=== PATIENT | female | born 1990 | race African-American/Black ===

== ENCOUNTER → 2016-09-04 | Outpatient (CLI) | payer BC, OTHER, SELFPAY ==
--- NOTE | 2016-09-07 15:05 | US ---
EXAM DATE: 09/04/16 PATIENT'S AGE: 26 Patient: ONEIL HAZEL Facility: [place], [place] Site . Site : 1990 Study: US OB Pelvis [id number]/10/2017 3:22:19 PM Ordering Physician: Miguel Ángel Claudio Final Report: INDICATION: survey. TECHNIQUE: Conventional transabdominal two-dimensional grayscale ultrasound examination. COMPARISON: 06/07/2016. FINDINGS: There is a living fetus with gestational age of 21 weeks by LMP and 20 weeks 2 days by today`s measurements. EDC based on LMP is 01/15/2017. BPD: 4.8 cm, 20 weeks 4 days Head circumference: 18.3 cm, 20 weeks 5 days Abdominal circumference: 15.3 cm, 20 weeks 4 days Femur length: 3.1 cm, 19 weeks 4 days The weight is estimated at 334 grams, the 10th percentile. The heart rate is measured at 150 beats per minute and the rhythm appears regular. The head and spine are grossly intact. No gross facial abnormality is evident. The upper lip is intact. Four cardiac chambers are demonstrated. The heart and stomach appear to be on the same side. The diaphragm is intact. Two kidneys and a bladder are demonstrated. The cord insertion is normal and 3 cord vessels are noted. Four extremities are demonstrated. The amniotic fluid volume is within normal limits with SAE of 13 cm. The placenta is posterior and appears to be low-lying. IMPRESSION: 1. Living fetus with gestational age of 21 weeks by LMP and 20 weeks 2 days by today`s measurements. EDC based on LMP is 01/15/2017. 2. No anomaly evident. 3. Low lying posterior placenta. Follow up examination, perhaps with translabial or transvaginal scanning suggested to exclude previa. Dictated by Jarred Head MD @ Sep 07 2016 9:35AM (Electronic Signature) Report Signed by Proxy and Original Signed Document filed in the Medical Record. MTDD
== END ==
LOC: MW.US 14:12
PROVIDERS: ATTEND Advanced Practice Midwife
DX: Z34.90 Encounter for supervision of normal pregnancy, unspecified, unspecified trimester (principal); Z3A.20 20 weeks gestation of pregnancy
CPT/HCPCS: 36415; 76805; 76805-26; 80305; 81003; 85025; 86592; 86762; 86803; 86850; 86900; 86901; 87086; 87340; 87389

== ENCOUNTER → 2016-10-28 | Outpatient (CLI) | payer BC, OTHER, SELFPAY | LOC: MW.CHOBGYN 09:58 | PROVIDERS: ATTEND Advanced Practice Midwife | DX: Z34.90 Encounter for supervision of normal pregnancy, unspecified, unspecified trimester (principal) | CPT/HCPCS: 36415; 82950; 85027; 86850 ==

== ENCOUNTER 2016-12-29 19:11 | Emergency (ER) | payer BC, OTHER ==
--- NOTE | 2016-12-29 19:31 | EDM.PDOC ---
ED HPI GENERAL MEDICAL PROBLEM - General Stated Complaint: 27 WKS/CHEST PAIN Time Seen by Provider: 12/29/16 19:28 - History of Present Illness INITIAL COMMENTS - FREE TEXT/NARRATIVE: HISTORY AND PHYSICAL: History of present illness: She's a 26-year-old black female was approximately 37 weeks who presents with concern of lower back lower abdominal pain and cramping delivered at 37 weeks with a prior loss was complaint of shortness of breath and chest pain pulse oximetry is 99% on room air patient's afebrile heart rate 94 blood pressure 157/105 EKG is sinus rhythm with a rate of 91 and no acute changes patient denies vaginal discharge bleeding denies any evidence of water breaking. She has no headache no blurry vision or other complaints Review of systems: As per history of present illness and below otherwise all systems reviewed and negative. Past medical history: As per history of present illness and as reviewed below otherwise noncontributory. Surgical history: As per history of present illness and as reviewed below otherwise noncontributory. Social history: No reported history of drug or alcohol abuse. Family history: As per history of present illness and as reviewed below otherwise noncontributory. Physical exam: HEENT: Atraumatic, normocephalic, pupils reactive, negative for conjunctival pallor or scleral icterus, mucous membranes moist, throat clear, neck supple, nontender, trachea midline. Lungs: Clear to auscultation, breath sounds equal bilaterally, chest nontender. Heart: S1S2, regular, negative for clicks, rubs, or JVD. Abdomen: Soft, gravid uterus noted consistent with dates Negative for masses or hepatosplenomegaly. Negative for costovertebral tenderness. Pelvis: Stable nontender. Genitourinary: Deferred. Rectal: Deferred. Extremities: Atraumatic, negative for cords or calf pain. Neurovascular unremarkable. Neuro: Awake, alert, oriented. Cranial nerves II through XII unremarkable. Cerebellum unremarkable. Motor and sensory unremarkable throughout. Exam nonfocal. 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 Crocker will present to the emergency department for evaluation as labor and delivery makes arrangements for transfer Therapeutics: IV O2 monitor Impression: #17 week intrauterine #2 low back/abdominal pain #3 atypical chest pain Definitive disposition and diagnosis as appropriate pending reevaluation and review of above. - Related Data Allergies Allergy/AdvReac Type Severity Reaction Status Date / Time No Known Allergies Allergy Verified 12/29/16 19:33 Home Meds: Home Meds PNV95/Ferrous Fumarate/FA [ Multivitamins] 1 tab PO DAILY 01/14/14 [ History] Past Medical History - Past Health History Medical/Surgical History: Denies Medical/Surgical History Social & Family History - Family History Family Medical History: Noncontributory - Tobacco Use Smoking Status *Q: Never Smoker Second Hand Smoke Exposure: No - Alcohol Use Days Per Week of Alcohol Use: 0 - Recreational Drug Use Recreational Drug Use: No ED ROS GENERAL - Review of Systems Review Of Systems: ROS reveals no pertinent complaints other than HPI. ED EXAM, GENERAL - Physical Exam Exam: See Below (See dictation) Course - Vital Signs Last Recorded V/S: Last Vital Signs Temp 36.9 C 12/29/16 19:11 Pulse 94 12/29/16 19:11 Resp 18 12/29/16 19:11 BP 157/105 H 12/29/16 19:11 Pulse Ox 99 12/29/16 19:11 Departure - Departure Time of Disposition: 19:42 Disposition: DC/Tfer to Other 70 Condition: Good Clinical Impression: Third trimester , Abdominal pain, Atypical chest pain - Discharge Information
== END 2016-12-29 21:01 | disposition other institution (70) ==
LOC: MW.ED 19:11
CPT/HCPCS: 93005; 99285-25

== ENCOUNTER 2017-01-01 10:01 | Inpatient (IN) | payer BC, OTHER, SELFPAY ==
[2017-01-01] MEDS ORDERED: Terbutaline 1 MG/ML SDV SUBCUT PRN (10:11)
[2017-01-01] MEDS ORDERED: Magnesium Sulfate/Water 4 GM in Premix Bag 1 BAG IV ONE (10:11)
[2017-01-01] MEDS ORDERED: Water For Irrigation,Sterile 1,000 ML Container IRR PRN (10:11)
[2017-01-01] MEDS ORDERED: Nalbuphine 10 MG/1 ML Vial IVPUSH PRN (10:11)
[2017-01-01] MEDS ORDERED: Calcium Gluconate 10% 1 GM/10 ML SDV IV PRN (10:11)
[2017-01-01] MEDS ORDERED: Misoprostol 200 MCG Tab PO PRN (10:11)
[2017-01-01] MEDS ORDERED: Methylergonovine 0.2 MG/1 ML Amp IM PRN (10:11)
[2017-01-01] MEDS ORDERED: Sodium Chloride 0.9% 10 ML Syringe FLUSH PRN (10:11)
[2017-01-01] MEDS ORDERED: Carboprost Tromethamine 250 MCG/1 ML Amp IM PRN (10:11)
[2017-01-01] MEDS ORDERED: Lidocaine 1% 50 ML MDV INJECT PRN (10:11)
[2017-01-01] MEDS ORDERED: Butorphanol 1 MG/ML SDV IVPUSH PRN (10:11)
[2017-01-01] MEDS ORDERED: Sodium Chloride 0.9% 2.5 ML Syringe FLUSH PRN (10:11)
[2017-01-01] MEDS ORDERED: Magnesium Sulfate/Water 40 GM/1,000 ML BAG IV SCH (10:15)
[2017-01-01] MEDS ORDERED: Oxytocin/Lactated Ringers 30 UNIT/500 ML BAG IV SCH ×2 (10:15)
[2017-01-01] MEDS ORDERED: Dextrose 5%-0.9% NaCl 1,000 ML IV SCH (11:00)
[2017-01-01] MEDS ORDERED: Ampicillin 2 GM in Sodium Chloride 0.9% 100 ML IV ONE ×4 (11:00)
[2017-01-01] MEDS ORDERED: Dextrose 5%-Lactated Ringers 1,000 ML IV SCH (12:45)
[2017-01-01] MEDS: Ampicillin 1 GM in Sodium Chloride 0.9% 50 ML IV SCH ×3 (16:07→23:59)
[2017-01-01] MEDS ORDERED: Lactated Ringers 1,000 ML IV ONE (18:28)
[2017-01-01] MEDS: Lactated Ringers 1,000 ML IV SCH ×2 (18:30→19:30)
--- NOTE | 2017-01-01 18:30 | PCM.PREANE ---
Preanesthetic Assessment - Procedure Proposed Procedure: labor epidural - Anesthesia/Transfusion/Family Hx Anesthesia History: Prior Anesthesia Without Reaction Family History of Anesthesia Reaction: No Transfusion History: No Prior Transfusion(s) - Review of Systems General: No Symptoms Pulmonary: No Symptoms Cardiovascular: No Symptoms (Pre eclampsia) Gastrointestinal: No symptoms Neurological: No Symptoms Other: Reports: None - Physical Assessment NPO Status Date: 01/01/17 NPO Status Time: 19:32 (ice chips only) Height: 1.68 m Weight: 82.554 kg ASA Class: 3 Mental Status: Alert & Oriented x3 Airway Class: Mallampati = 3 Dentition: Reports: Normal Dentition Thyro-Mental Finger Breadths: 3 Mouth Opening Finger Breadths: 3 ROM/Head Extension: Full Lungs: Clear to auscultation, Normal respiratory effort Cardiovascular: Regular Rate, Regular Rhythm - Lab Values: Laboratory Last Values WBC 9.25 K/uL (4.0-11.0) 01/01/17 10:46 RBC 5.00 M/uL (4.30-5.90) 01/01/17 10:46 Hgb 9.7 g/dL (12.0-16.0) L 01/01/17 10:46 Hct 29.6 % (36.0-46.0) L 01/01/17 10:46 MCV 59.2 fL (80.0-98.0) L 01/01/17 10:46 MCH 19.4 pg (27.0-32.0) L 01/01/17 10:46 MCHC 32.8 g/dL (31.0-37.0) 01/01/17 10:46 RDW Std Deviation 43.2 fl (28.0-62.0) 01/01/17 10:46 RDW Coeff of Marvel 20 % (11.0-15.0) H 01/01/17 10:46 Plt Count 340 K/uL (150-400) 01/01/17 10:46 MPV 8.90 fL (7.40-12.00) 01/01/17 10:46 Nucleated RBC % 0.3 /100WBC 01/01/17 10:46 Nucleated RBCs # 0 K/uL 01/01/17 10:46 Magnesium 3.3 mEq/L (1.5-2.3) H 01/01/17 15:49 Blood Type B POSITIVE 01/01/17 10:46 Antibody Screen NEGATIVE 01/01/17 10:46 - Allergies Allergies/Adverse Reactions: Allergies Allergy/AdvReac Type Severity Reaction Status Date / Time No Known Allergies Allergy Verified 12/29/16 19:33 - Blood Blood Available: Yes Product(s) Available: PRBC - Acknowledgements Anesthesia Type Planned: Epidural Pt an Appropriate Candidate for the Planned Anesthesia: Yes Alternatives and Risks of Anesthesia Discussed w Pt/Guardian: Yes Pt/Guardian Understands and Agrees with Anesthesia Plan: Yes PreAnesthesia Questionnaire - Past Health History Medical/Surgical History: Denies Medical/Surgical History HEENT History: Reports: None Cardiovascular History: Reports: None, Hypertension (Pre eclampsia, induction, on magnesium drip) Respiratory History: Reports: None Gastrointestinal History: Reports: None Genitourinary History: Reports: None 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: Reports: Musculoskeletal History: Reports: None Neurological History: Reports: None Psychiatric History: Reports: None Endocrine/Metabolic History: Reports: None Hematologic History: Reports: None Oncologic (Cancer) History: Reports: None Dermatologic History: Reports: None - Infectious Disease History Infectious Disease History: Reports: Chicken Pox - SUBSTANCE USE Smoking Status *Q: Never Smoker Second Hand Smoke Exposure: No Days Per Week of Alcohol Use: 0 Recreational Drug Use History: No - HOME MEDS Home Medications: Home Meds PNV95/Ferrous Fumarate/FA [ Multivitamins] 1 tab PO DAILY 01/14/14 [ History] - CURRENT (IN HOUSE) MEDS Current Meds: Current Medications Butorphanol Tartrate (Stadol) 1 mg IVPUSH Q1H PRN PRN Reason: Pain Last Admin: 01/01/17 14:57 Dose: 1 mg Calcium Gluconate (Calcium Gluconate) 1 gm IV ASDIRECTED PRN PRN Reason: respiratory distress Carboprost Tromethamine (Hemabate Ds) 250 mcg IM ASDIRECTED PRN PRN Reason: Post Hemorrhage Ampicillin Sodium 1 gm/ Sodium (Chloride) 50 mls @ 100 mls/hr IV Q4H YEVGENIY Last Admin: 01/01/17 16:07 Dose: 100 mls/hr Magnesium Sulfate (Magnesium Sulfate 40 Gm In Water 1000 Ml) 40 gm in 1,000 mls @ 50 mls/hr IV ASDIRECTED YEVGENIY PRN Reason: 2 GM/HR Last Admin: 01/01/17 11:49 Dose: 2 gm/hr, 50 mls/hr Oxytocin/Lactated Ringer's (Pitocin In Lr 30 Units/500 Ml) 30 unit in 500 mls @ 2 mls/hr IV TITRATE YEVGENIY; 2 MUNITS/MIN PRN Reason: Protocol Last Titration: 01/01/17 17:35 Dose: 12 munits/min, 12 mls/hr Dextrose/Sodium Chloride (Dextrose 5%-Normal Saline) 1,000 mls @ 60 mls/hr IV ASDIRECTED YEVGENIY Last Infusion: 01/01/17 12:00 Dose: 10 mls/hr Dextrose/Lactated Ringer's (Dextrose 5%-Lactated Ringers) 1,000 mls @ 150 mls/ hr IV ASDIRECTED YEVGENIY Last Admin: 01/01/17 11:50 Dose: 10 mls/hr Lidocaine HCl (Xylocaine 1%) 50 ml INJECT .ONCE PRN PRN Reason: Laceration repair Methylergonovine Maleate (Methergine) 0.2 mg IM ASDIRECTED PRN PRN Reason: Post Hemorrhage Misoprostol (Cytotec) 200 mcg PO .ONCE PRN PRN Reason: Post Hemorrhage Sodium Chloride (Saline Flush) 10 ml FLUSH ASDIRECTED PRN PRN Reason: Keep Vein Open Sodium Chloride (Saline Flush) 2.5 ml FLUSH ASDIRECTED PRN PRN Reason: Keep Vein Open Sterile Water (Sterile Water For Irrigation) 1,000 ml IRR ASDIRECTED PRN PRN Reason: delivery Terbutaline Sulfate (Brethine) 0.25 mg SUBCUT ASDIRECTED PRN PRN Reason: Tacysystole Discontinued Medications Ampicillin Sodium 2 gm/ Sodium (Chloride) 100 mls @ 200 mls/hr IV ONETIME ONE Stop: 01/01/17 11:29 Magnesium Sulfate 4 gm/ Premix 100 mls @ 300 mls/hr IV .BOLUS ONE Stop: 01/01/17 10:30 Last Admin: 01/01/17 11:34 Dose: 300 mls/hr Oxytocin/Lactated Ringer's (Pitocin In Lr 30 Units/500 Ml) 30 unit in 500 mls @ 999 mls/hr IV TITRATE YEVGENIY Stop: 01/01/17 10:46 Ampicillin Sodium 2 gm/ Sodium (Chloride) 100 mls @ 200 mls/hr IV ONETIME ONE Stop: 01/01/17 11:29 Last Admin: 01/01/17 12:00 Dose: 200 mls/hr Nalbuphine HCl (Nubain) 10 mg IVPUSH Q1H PRN PRN Reason: Pain (severe 7-10) Stop: 01/01/17 11:12 - Free Text/Narrative Note: Labor Analgesia/Epidural Procedure start date: 01/01/17 time: 1846 Attending provider aware Chart reviewed Permit signed Labs reviewed VS/ FHR reviewed Pt identified/ID band Pt assessed Risks/Benefits discussed and accepted Monitors in place (BP, HR, SPO2) Patient, Site, Procedure Verification, Pause. pain "7/10" Fluid bolus infused (fluid type and amount): LR 1000 ml infused, strict fluid restriction r/t preeclampsia Position: Sitting @ 1854 Prep: Betadine X 3 Sterile Drape Intradermal Wheal: 3 ml 1% Lidocaine Regional placement level: L3-4 Needle: 17 g Tuohy Approach: Midline Technique: DAIANA glass syringe w 3 ml Sterile water DAIANA needle depth: 6 cm Paresthesia: None Fluid Obtained: None Catheter insertion time: 1902 Catheter depth at skin: 20 cm Test Dose Time: 1904 RX: 3 ml 1.5% lidocaine with 1:200,000 epi Response: Negative Loading dose Time: 1276-9331 RX: 100 mcg fentanyl followed by 5 ml 0.2% ropivacaine in 1-2 ml increments over 12 minutes Pt position: semi fowlers with GABBI Continuous infusion Start Time: 1921 RX: 100 ml 0.2% ropivacaine with 2 mcg/ml fentanyl Continuous infusion rate: 8 ml/hr HAND WASHER bolus option: 5 ml q 15 min Pt response Post procedure pain level: Level achieved: VS and FHR monitored in unit post placement (See OB traceview for documentation. ) Procedure end date: 01/01/17 time: 2016
[2017-01-01] MEDS ORDERED: fentaNYL 100 MCG/2 ML SDV ONE (18:44)
[2017-01-01] MEDS ORDERED: Ropivacaine 0.2% 2 MG/ML 20 ML SDV ONE (18:44)
[2017-01-01] MEDS ORDERED: ePHEDrine 50 MG/ML SDV ONE (20:06)
--- NOTE | 2017-01-02 00:28 | HP ---
DATE OF : 1990 PRIMARY CARE PHYSICIAN: Unknown PCP ADMITTING DIAGNOSIS: Preeclampsia. HISTORY: This is a 26-year-old female, she is G2, P1-0-0-1. She is currently at 37 and 4/7th weeks' gestation. She was seen in the clinic by her primary OB provider Shanon Del Rosario for whom I am covering and she had a 24 hour urine collection that came back with 1401 mg of protein in the 24 hour collection. She has had slightly elevated blood pressures in the clinic. She denies significant swelling. She does report a mild headache. No epigastric pain or tenderness. Her care to this point has been uncomplicated. She is B positive, rubella immune. She is positive for group B strep. On ultrasound in the second trimester, there was noted to be a low-lying placenta, however this had resolved with followup ultrasound on December 14. PAST MEDICAL HISTORY: Negative for chronic illness. PAST SURGICAL HISTORY: None. ALLERGIES: None known. MEDICATION: vitamins. SOCIAL HISTORY: She is , sexually active. Denies use of tobacco, alcohol, or street drugs. She works at [employer]. She is comfortable speaking O[place]i. She is originally from [place]. REVIEW OF SYSTEMS: Positive for mild headache. Negative for visual changes. Negative for shortness of breath or chest pain. Negative for gastroentero changes. PHYSICAL EXAMINATION: VITAL SIGNS: Blood pressure on admission was 138/87, repeat 134/83, temperature 98.0, pulse is 86, respiratory rate of 18. heart tones are 125, moderate variability, accelerations of 10 beats per minute are present. GENERAL: She is alert and oriented. She is in no acute distress. NECK: Supple without lymphadenopathy or thyromegaly. LUNGS: Clear bilaterally. CV: Regular rate without murmur. ABDOMEN: Soft, gravid, nontender. Estimated weight 2800 g. EXTREMITIES: Show trace edema. : Vaginal exam is 3 cm, 50%, very high station. DIAGNOSTIC DATA: Ultrasound is performed at bedside to confirm cephalic presentation. LABORATORY STUDIES: Include a platelet count of 340,000, hemoglobin of 9.7, white blood cell count of 9.25 and 24 hour urine protein of 1401 mg. ASSESSMENT AND PLAN: 1. 37 and 4/7th week intrauterine . 2. Category one status. 3. Group B strep positive. 4. Mild preeclampsia. 5. Anemia. TREATMENT AND PLAN: We will admit for induction of labor, will receive ampicillin every 4 hours. She may have an epidural for pain control, will continue with magnesium sulfate for seizure prophylaxis with magnesium protocol and monitoring urine output as well as blood pressures intervention as needed for preeclampsia. The patient understands the plan and is in agreement. PAOLA DIAZ /[id number]
--- NOTE | 2017-01-02 03:51 | PCM.SN ---
- Free Text/Narrative Note: Initially called for breakthrough pain. Reported by nursing staff that patient dilated to 8 cm and feeling a lot of pressure in back. Nurse requesting that patient be given "something a little bit more or stronger". Nurse states she thinks baby might be "OP". States pt has used LABORATORY PHLEBOTOMIST button "about 3 times". Upon arrival, pt near complete dilation. Chart reviewed and pt found to have pushed bolus button intermittently over the past 2 hours. Pt states she is "so numb I can't hardly move". Dr. Clarke en route for delivery. Nursing staff educated on LABORATORY PHLEBOTOMIST use and instructed that patient should use LABORATORY PHLEBOTOMIST button consistently over the course of an hour to determine effectiveness. Epidural infusion bag near empty. Bag replaced and rate left at current settings. Dr Clarke here and updated on pt pain status. Will remain available for additional dosing at business development coordinator request.
[2017-01-02] MEDS: Ampicillin 1 GM in Sodium Chloride 0.9% 50 ML IV SCH (03:54)
[2017-01-02] MEDS ORDERED: Docusate Sodium 100 MG Cap PO PRN (06:25)
[2017-01-02] MEDS ORDERED: Bisacodyl 10 MG Supp RECTAL PRN (06:25)
[2017-01-02] MEDS ORDERED: Carboprost Tromethamine 250 MCG/1 ML Amp IM PRN (06:25)
[2017-01-02] MEDS ORDERED: Acetaminophen 500 MG Tab PO PRN (06:25)
[2017-01-02] MEDS ORDERED: Witch Hazel Medicated Pads 40/Jar TOP PRN (06:25)
[2017-01-02] MEDS ORDERED: Lanolin 100% Cream 7 GM Tube TOP PRN (06:25)
[2017-01-02] MEDS ORDERED: Benzocaine/Menthol 20%-0.5% Spray 78 GM Cannister TOP PRN (06:25)
[2017-01-02] MEDS ORDERED: Calcium Gluconate 10% 1 GM/10 ML SDV IVPUSH PRN (06:29)
[2017-01-02] MEDS: Magnesium Sulfate/Water 40 GM/1,000 ML BAG IV SCH (07:01)
[2017-01-02] MEDS: Ibuprofen 800 MG Tab PO PRN ×2 (09:08→21:16)
--- NOTE | 2017-01-02 09:13 | OR ---
SURGEON: Felipa Clarke M.D. DATE OF PROCEDURE: PREOPERATIVE DIAGNOSES: 1. A 37 and 5/7th week intrauterine . 2. Mild preeclampsia. POSTOPERATIVE DIAGNOSES: 1. A 37 and 5/7th week intrauterine . 2. Mild preeclampsia. PROCEDURE: Pitocin induction of labor, term spontaneous vaginal delivery. ANESTHESIA: Epidural. ESTIMATED BLOOD LOSS: Less than 200 mL. FINDINGS: Live-born male, score 7 and 8, weighing 2670 g, placenta spontaneous, Schultze intact with 3 vessels, perineum intact. BRIEF HISTORY: This is a 26-year-old female. She is G2, P1-0-0-1. She presented to the clinic at 37 and 4/7th weeks' gestation having completed a 24-hour urine, which had 1400 mg of protein. She reported a mild headache, which was intermittent. Her blood pressures were mildly elevated and recommendation was to proceed with induction of labor. Her Coleman score was favorable, therefore, she was started on Pitocin. She had category 1 heart tones after magnesium variability was decreased, however, still with accelerations present. She progressed to 4 cm and she received an epidural for pain control. Artificial rupture of membranes was performed. She tolerated the magnesium well and magnesium levels were obtained to follow the magnesium treatment. She had excellent urine output throughout labor. She progressed to complete. Initially, she had minimal urge to push. The head was at a high station and was occiput posterior. Therefore, passive descent was allowed for 1-hour. At this time, she was a +3 station and was feeling pressure. DESCRIPTION OF PROCEDURE: With the patient in dorsal lithotomy position, the patient pushed over a 10- minute time period to a 5+ station, at which time the head was delivered spontaneously and atraumatically over the perineum with support with subsequent delivery of the infant's shoulders and body without any difficulty. The infant was bulb suctioned by nose and mouth. Cord was clamped x2 and cut and the infant was handed to the mother in the presence of the nurse attending delivery. The is a liveborn male, score 7 and 8, weighing 2670 g. Cord blood was collected for cord ABGs as well as routine cord blood sampling. Pitocin was initiated after delivery of the to assist with delivery of the placenta, which was delivered spontaneously, Schultze intact with 3 vessels. Upon inspection of the pelvis and perineum, there were no periurethral, vaginal sidewall, cervical, rectal, or perineal lacerations. EBL was less than 200 mL. There were no known complications. Mother and remained in LDRP in good condition. Mother will be continued on magnesium seizure prophylaxis for 24 hours . Final sponge, needle, instrument count were correct. PAOLA DIAZ /[id number]
--- NOTE | 2017-01-02 15:15 | PCM48HPAN ---
Post Anesthesia Note - EVALUATION WITHIN 48HRS OF ANESTHETIC Vital Signs in Normal Range: Yes Patient Participated in Evaluation: Yes Respiratory Function Stable: Yes Airway Patent: Yes Cardiovascular Function Stable: Yes Hydration Status Stable: Yes Pain Control Satisfactory: Yes Nausea and Vomiting Control Satisfactory: Yes Mental Status Recovered: Yes
--- NOTE | 2017-01-02 19:40 | PCM.PNPP ---
- General Info Date of Service: 01/02/17 Functional Status: Reports: pain controlled, urinating. Denies: tolerating diet (limited clears due to magnesium, denies nausea), ambulating - Review of Systems General: Reports: No Symptoms HEENT: Reports: no symptoms Pulmonary: Reports: no symptoms Cardiovascular: Reports: No Symptoms Gastrointestinal: Reports: No symptoms Genitourinary: Reports: no symptoms Musculoskeletal: Reports: no symptoms Skin: Reports: no symptoms Neurological: Reports: No Symptoms Psychiatric: Reports: no symptoms - Patient Data Vital Signs - most recent: Last Vital Signs Temp 37.1 C 01/02/17 16:00 Pulse 86 01/02/17 16:00 Resp 18 01/02/17 16:00 BP 128/71 01/02/17 16:00 Pulse Ox 97 01/02/17 16:00 Weight - most recent: 80.1 kg I&O - last 24 hours: Intake & Output 01/02/17 01/02/17 01/02/17 06:59 14:59 22:59 Intake Total 3225 Output Total 1075 Balance 2150 Lab Results - last 24 hrs: Laboratory Results - last 24 hr 01/01/17 01/01/17 01/02/17 Range/Units 14:30 21:10 03:10 Magnesium 3.9 H 4.1 H (1.5-2.3) mEq/L Urine Color YELLOW Urine Appearance CLEAR Urine pH 6.0 (5.0-8.0) Ur Specific [place] 1.025 (1.001-1.035) Urine Protein TRACE (NEGATIVE) mg/dL Urine Glucose (UA) NEGATIVE (NEGATIVE) mg/dL Urine Ketones NEGATIVE (NEGATIVE) mg/dL Urine Occult Blood NEGATIVE (NEGATIVE) Urine Nitrite NEGATIVE (NEGATIVE) Urine Bilirubin NEGATIVE (NEGATIVE) Urine Urobilinogen 0.2 (<2.0) EU/dL Ur Leukocyte Esterase NEGATIVE (NEGATIVE) 01/02/17 01/02/17 Range/Units 07:12 12:51 Magnesium 4.6 H 4.5 H (1.5-2.3) mEq/L Urine Color Urine Appearance Urine pH (5.0-8.0) Ur Specific [place] (1.001-1.035) Urine Protein (NEGATIVE) mg/dL Urine Glucose (UA) (NEGATIVE) mg/dL Urine Ketones (NEGATIVE) mg/dL Urine Occult Blood (NEGATIVE) Urine Nitrite (NEGATIVE) Urine Bilirubin (NEGATIVE) Urine Urobilinogen (<2.0) EU/dL Ur Leukocyte Esterase (NEGATIVE) Med Orders - Current: Current Medications Acetaminophen (Tylenol Extra Strength) 1,000 mg PO Q4H PRN PRN Reason: Pain Last Admin: 01/02/17 14:29 Dose: 1,000 mg Benzocaine/Menthol (Dermoplast Pain Relief 20%-0.5% [place]) 78 gm TOP ASDIRECTED PRN PRN Reason: Perineal Comfort Measure Last Admin: 01/02/17 09:09 Dose: 1 canister Bisacodyl (Dulcolax) 10 mg RECTAL .ONCE PRN PRN Reason: Constipation Calcium Gluconate (Calcium Gluconate) 1 gm IVPUSH ASDIRECTED PRN PRN Reason: respiratory distress Carboprost Tromethamine (Hemabate Ds) 250 mcg IM ASDIRECTED PRN PRN Reason: Excessive vaginal bleeding Stop: 01/09/17 06:26 Docusate Sodium (Colace) 100 mg PO BID PRN PRN Reason: Constipation Emollient Ointment (Lansinoh Hpa) 0 gm TOP ASDIRECTED PRN PRN Reason: Sore Nipples Last Admin: 01/02/17 09:09 Dose: 1 tube Magnesium Sulfate (Magnesium Sulfate 40 Gm In Water 1000 Ml) 40 gm in 1,000 mls @ 50 mls/hr IV ASDIRECTED YEVGENIY; 2 GM/HR PRN Reason: Protocol Last Admin: 01/02/17 07:01 Dose: 2 gm/hr, 50 mls/hr Ibuprofen (Motrin) 800 mg PO Q6H PRN PRN Reason: Pain Last Admin: 01/02/17 09:08 Dose: 800 mg Witch Paula (Tucks) 1 pad TOP ASDIRECTED PRN PRN Reason: comfort care Last Admin: 01/02/17 09:09 Dose: 1 tub Discontinued Medications Butorphanol Tartrate (Stadol) 1 mg IVPUSH Q1H PRN PRN Reason: Pain Last Admin: 01/01/17 14:57 Dose: 1 mg Calcium Gluconate (Calcium Gluconate) 1 gm IV ASDIRECTED PRN PRN Reason: respiratory distress Carboprost Tromethamine (Hemabate Ds) 250 mcg IM ASDIRECTED PRN PRN Reason: Post Hemorrhage Ephedrine Sulfate (Ephedrine Sulfate) Confirm Administered Dose 50 mg .ROUTE .STK-MED ONE Stop: 01/01/17 20:07 Last Admin: 01/01/17 21:48 Dose: Not Given Fentanyl (Sublimaze) Confirm Administered Dose 100 mcg .ROUTE .STK-MED ONE Stop: 01/01/17 18:45 Last Admin: 01/01/17 21:48 Dose: Not Given Ampicillin Sodium 1 gm/ Sodium (Chloride) 50 mls @ 100 mls/hr IV Q4H YEVGENIY Last Admin: 01/02/17 03:54 Dose: 100 mls/hr Ampicillin Sodium 2 gm/ Sodium (Chloride) 100 mls @ 200 mls/hr IV ONETIME ONE Stop: 01/01/17 11:29 Last Admin: 01/02/17 07:04 Dose: Not Given Magnesium Sulfate 4 gm/ Premix 100 mls @ 300 mls/hr IV .BOLUS ONE Stop: 01/01/17 10:30 Last Admin: 01/01/17 11:34 Dose: 300 mls/hr Magnesium Sulfate (Magnesium Sulfate 40 Gm In Water 1000 Ml) 40 gm in 1,000 mls @ 50 mls/hr IV ASDIRECTED YEVGENIY PRN Reason: 2 GM/HR Last Admin: 01/01/17 11:49 Dose: 2 gm/hr, 50 mls/hr Oxytocin/Lactated Ringer's (Pitocin In Lr 30 Units/500 Ml) 30 unit in 500 mls @ 999 mls/hr IV TITRATE YEVGENIY Stop: 01/01/17 10:46 Last Admin: 01/01/17 21:49 Dose: Not Given Oxytocin/Lactated Ringer's (Pitocin In Lr 30 Units/500 Ml) 30 unit in 500 mls @ 2 mls/hr IV TITRATE YEVGENIY; 2 MUNITS/MIN PRN Reason: Protocol Last Titration: 01/02/17 06:00 Dose: 999 mls/hr Ampicillin Sodium 2 gm/ Sodium (Chloride) 100 mls @ 200 mls/hr IV ONETIME ONE Stop: 01/01/17 11:29 Last Admin: 01/01/17 12:00 Dose: 200 mls/hr Dextrose/Sodium Chloride (Dextrose 5%-Normal Saline) 1,000 mls @ 60 mls/hr IV ASDIRECTED YEVGENIY Last Infusion: 01/01/17 12:00 Dose: 10 mls/hr Dextrose/Lactated Ringer's (Dextrose 5%-Lactated Ringers) 1,000 mls @ 150 mls/ hr IV ASDIRECTED [facility] Stop: 01/01/17 18:15 Last Infusion: 01/01/17 18:30 Dose: 0 mls/hr Lactated Ringer's (Ringers, Lactated) 1,000 mls @ 999 mls/hr IV ASDIRECTED ONE Stop: 01/01/17 19:28 Last Admin: 01/01/17 21:49 Dose: Not Given Lactated Ringer's (Ringers, Lactated) 1,000 mls @ 20 mls/hr IV ASDIRECTED [facility] Last Admin: 01/01/17 19:30 Dose: 10 mls/hr Ropivacaine/Fentanyl/NS (Fentanyl 2 Mcg-Ropiv 0.2%-Ns) Confirm Administered Dose 100 mls @ as directed .ROUTE .[employer]-MED ONE Stop: 01/01/17 18:45 Last Admin: 01/01/17 21:48 Dose: Not Given Ropivacaine/Fentanyl/NS (Fentanyl 2 Mcg-Ropiv 0.2%-Ns) Confirm Administered Dose 100 mls @ as directed .ROUTE .[facility]-MED ONE Stop: 01/02/17 03:33 Last Admin: 01/02/17 04:45 Dose: Not Given Lidocaine HCl (Xylocaine 1%) 50 ml INJECT .ONCE PRN PRN Reason: Laceration repair Methylergonovine Maleate (Methergine) 0.2 mg IM ASDIRECTED PRN PRN Reason: Post Hemorrhage Misoprostol (Cytotec) 200 mcg PO .ONCE PRN PRN Reason: Post Hemorrhage Nalbuphine HCl (Nubain) 10 mg IVPUSH Q1H PRN PRN Reason: Pain (severe 7-10) Stop: 01/01/17 11:12 Ropivacaine (Naropin 0.2%) Confirm Administered Dose 20 ml .ROUTE .STK-MED ONE Stop: 01/01/17 18:45 Last Admin: 01/01/17 21:48 Dose: Not Given Sodium Chloride (Saline Flush) 10 ml FLUSH ASDIRECTED PRN PRN Reason: Keep Vein Open Sodium Chloride (Saline Flush) 2.5 ml FLUSH ASDIRECTED PRN PRN Reason: Keep Vein Open Sterile Water (Sterile Water For Irrigation) 1,000 ml IRR ASDIRECTED PRN PRN Reason: delivery Terbutaline Sulfate (Brethine) 0.25 mg SUBCUT ASDIRECTED PRN PRN Reason: Tacysystole - Interaction Disposition, : [place] in Room with Family Interaction: Holding Infant Support Person: - Recovery Exam Fundal Tone: Firms with Massage Fundal Level: 1 Fingerbreadths Below Umbilicus Fundal Placement: Midline Lochia Amount: Scant Lochia Color: Rubra/Red Perineum Description: Intact, Minimal Bruising/Swelling Bladder Status: Voiding Urinary Elimination: Voided - Exam General: alert, oriented HEENT: Pupils equal Neck: supple Lungs: Clear to auscultation, Normal respiratory effort Cardiovascular: Regular Rate, Regular Rhythm Abdomen: bowel sounds present, soft, no tenderness, no distension Extremities: no edema Skin: warm, dry, intact Neurological: no new focal deficit Psy/Mental Status: alert, normal affect, normal mood - Problem List & Annotations (1) Pre-eclampsia, mild, delivered SNOMED Code(s): 44260722, [id number] Code(s): O14.04 - MILD TO MODERATE PRE-ECLAMPSIA, COMPLICATING CHILDBIRTH Status: Acute Current Visit: Yes - Problem List Review Problem List Initiated/Reviewed/Updated: Yes - My Orders Last 24 Hours: My Active Orders 01/02/17 06:25 Patient Status [ADT] Routine May Shower [RC] ASDIRECTED Up ad Marily [RC] ASDIRECTED Vital Signs [RC] PER UNIT ROUTINE Acetaminophen [Tylenol Extra Strength] 1,000 mg PO Q4H PRN Benzocaine/Menthol [Dermoplast Pain Relief 20%-0.5% [place]] 78 gm TOP ASDIRECTED PRN Bisacodyl [Dulcolax] 10 mg RECTAL .ONCE PRN Carboprost Tromethamine [Hemabate DS] 250 mcg IM ASDIRECTED PRN Docusate Sodium [Colace] 100 mg PO BID PRN Ibuprofen [Motrin] 800 mg PO Q6H PRN Lanolin [Lansinoh HPA] See Dose Instructions TOP ASDIRECTED PRN Witch Paula [Tucks] 1 pad TOP ASDIRECTED PRN Assess Lochia [WOMSER] Per Unit Routine Assess Uterine Involution [WOMSER] Per Unit Routine Peripheral IV Discontinue [OM.PC] Routine Resuscitation Status Routine 01/02/17 06:26 Perineal Care [OM.PC] Per Unit Routine 01/02/17 06:29 Bedrest [RC] ASDIRECTED Communication Order [RC] PRN Equipment to Bedside [RC] PRN Height and Weight [RC] DAILY Notify Provider Status Change [RC] ASDIRECTED Notify Provider [RC] PRN Vital Signs [RC] ASDIRECTED Calcium Gluconate 1 gm IVPUSH ASDIRECTED PRN 01/02/17 06:30 Magnesium Sulfate/Water [Magnesium Sulfate 40 GM in Water 1000 ML] 40 gm in 1, 000 ml IV ASDIRECTED Deep Tendon Reflexes [WOMSER] Q1 01/02/17 07:30 Deep Tendon Reflexes [WOMSER] Q1 01/02/17 08:30 Deep Tendon Reflexes [WOMSER] Q1 01/02/17 09:30 Deep Tendon Reflexes [WOMSER] [facility] 01/02/17 10:30 Deep Tendon Reflexes [WOMSER] [facility] 01/02/17 11:30 Deep Tendon Reflexes [WOMSER] Q1 01/02/17 12:30 Deep Tendon Reflexes [WOMSER] Q1 01/02/17 13:30 Deep Tendon Reflexes [WOMSER] [facility] 01/02/17 14:30 Deep Tendon Reflexes [WOMSER] Q1 01/02/17 15:30 Deep Tendon Reflexes [WOMSER] [facility] 01/02/17 16:30 Deep Tendon Reflexes [WOMSER] [facility] 01/02/17 17:30 Deep Tendon Reflexes [WOMSER] [facility] 01/02/17 18:30 Deep Tendon Reflexes [WOMSER] Q1 01/02/17 19:14 MAGNESIUM [CHEM] Q6H 01/02/17 19:30 Deep Tendon Reflexes [WOMSER] Q1 01/02/17 20:30 Deep Tendon Reflexes [WOMSER] Q1 01/02/17 21:30 Deep Tendon Reflexes [WOMSER] Q1 01/02/17 22:30 Deep Tendon Reflexes [WOMSER] Q1 01/02/17 23:30 Deep Tendon Reflexes [WOMSER] Q1H 01/03/17 00:30 MAGNESIUM [CHEM] Q6H Deep Tendon Reflexes [WOMSER] Q1 01/03/17 01:30 Deep Tendon Reflexes [WOMSER] Q1H 01/03/17 02:30 Deep Tendon Reflexes [WOMSER] Q1H 01/03/17 03:30 Deep Tendon Reflexes [WOMSER] Q1H 01/03/17 04:30 Deep Tendon Reflexes [WOMSER] Q1H 01/03/17 05:11 HEMOGLOBIN/HEMATOCRIT,HH [HEME] Timed 01/03/17 05:30 Deep Tendon Reflexes [WOMSER] Q1H 01/03/17 06:30 MAGNESIUM [CHEM] Q6H - Assessment Assessment:: PPD#0 after , induction for preeclampsia, normal BP, good urine output. Expresses desires to go home tomorrow. I explained that we will need to monitor BP and vitals for a few hours after being off magnesium so may in late afternoon. - Plan Plan:: Discontinue magnesium at 0500 continue clears, with fluid restriction.
[2017-01-03] MEDS: Magnesium Sulfate/Water 40 GM/1,000 ML BAG IV SCH (02:51)
--- NOTE | 2017-01-03 08:15 | PCM.PNPP ---
- General Info Date of Service: 01/03/17 Functional Status: Reports: pain controlled, tolerating diet, ambulating, urinating - Review of Systems General: Reports: No Symptoms HEENT: Reports: no symptoms Pulmonary: Reports: no symptoms Cardiovascular: Reports: No Symptoms Gastrointestinal: Reports: No symptoms Genitourinary: Reports: no symptoms Musculoskeletal: Reports: no symptoms Skin: Reports: no symptoms Neurological: Reports: No Symptoms Psychiatric: Reports: no symptoms - Patient Data Vital Signs - most recent: Last Vital Signs Temp 36.8 C 01/03/17 00:00 Pulse 69 01/03/17 05:30 Resp 17 01/03/17 05:30 BP 142/93 H 01/03/17 05:30 Pulse Ox 98 01/03/17 05:30 Weight - most recent: 80.1 kg I&O - last 24 hours: Intake & Output 01/02/17 01/03/17 01/03/17 22:59 06:59 14:59 Intake Total 308 Output Total 1600 Balance -1292 Lab Results - last 24 hrs: Laboratory Results - last 24 hr 01/02/17 01/02/17 01/03/17 Range/Units 12:51 19:14 00:25 Hgb (12.0-16.0) g/dL Hct (36.0-46.0) % Magnesium 4.5 H 4.3 H 4.0 H (1.5-2.3) mEq/L 01/03/17 01/03/17 Range/Units 05:50 06:24 Hgb 8.3 L (12.0-16.0) g/dL Hct 25.4 L (36.0-46.0) % Magnesium 3.5 H (1.5-2.3) mEq/L Med Orders - Current: Current Medications Acetaminophen (Tylenol Extra Strength) 1,000 mg PO Q4H PRN PRN Reason: Pain Last Admin: 01/02/17 14:29 Dose: 1,000 mg Benzocaine/Menthol (Dermoplast Pain Relief 20%-0.5% [place]) 78 gm TOP ASDIRECTED PRN PRN Reason: Perineal Comfort Measure Last Admin: 01/02/17 09:09 Dose: 1 canister Bisacodyl (Dulcolax) 10 mg RECTAL .ONCE PRN PRN Reason: Constipation Calcium Gluconate (Calcium Gluconate) 1 gm IVPUSH ASDIRECTED PRN PRN Reason: respiratory distress Carboprost Tromethamine (Hemabate Ds) 250 mcg IM ASDIRECTED PRN PRN Reason: Excessive vaginal bleeding Stop: 01/09/17 06:26 Docusate Sodium (Colace) 100 mg PO BID PRN PRN Reason: Constipation Emollient Ointment (Lansinoh Hpa) 0 gm TOP ASDIRECTED PRN PRN Reason: Sore Nipples Last Admin: 01/02/17 09:09 Dose: 1 tube Ibuprofen (Motrin) 800 mg PO Q6H PRN PRN Reason: Pain Last Admin: 01/02/17 21:16 Dose: 800 mg [place] (Tucks) 1 pad TOP ASDIRECTED PRN PRN Reason: comfort care Last Admin: 01/02/17 09:09 Dose: 1 tub Discontinued Medications Butorphanol Tartrate (Stadol) 1 mg IVPUSH Q1H PRN PRN Reason: Pain Last Admin: 01/01/17 14:57 Dose: 1 mg Calcium Gluconate (Calcium Gluconate) 1 gm IV ASDIRECTED PRN PRN Reason: respiratory distress Carboprost Tromethamine (Hemabate Ds) 250 mcg IM ASDIRECTED PRN PRN Reason: Post Hemorrhage Ephedrine Sulfate (Ephedrine Sulfate) Confirm Administered Dose 50 mg .ROUTE .STK-MED ONE Stop: 01/01/17 20:07 Last Admin: 01/01/17 21:48 Dose: Not Given Fentanyl (Sublimaze) Confirm Administered Dose 100 mcg .ROUTE .STK-MED ONE Stop: 01/01/17 18:45 Last Admin: 01/01/17 21:48 Dose: Not Given Ampicillin Sodium 1 gm/ Sodium (Chloride) 50 mls @ 100 mls/hr IV Q4H YEVGENIY Last Admin: 01/02/17 03:54 Dose: 100 mls/hr Ampicillin Sodium 2 gm/ Sodium (Chloride) 100 mls @ 200 mls/hr IV ONETIME ONE Stop: 01/01/17 11:29 Last Admin: 01/02/17 07:04 Dose: Not Given Magnesium Sulfate 4 gm/ Premix 100 mls @ 300 mls/hr IV .BOLUS ONE Stop: 01/01/17 10:30 Last Admin: 01/01/17 11:34 Dose: 300 mls/hr Magnesium Sulfate (Magnesium Sulfate 40 Gm In Water 1000 Ml) 40 gm in 1,000 mls @ 50 mls/hr IV ASDIRECTED YEVGENIY PRN Reason: 2 GM/HR Last Admin: 01/01/17 11:49 Dose: 2 gm/hr, 50 mls/hr Oxytocin/Lactated Ringer's (Pitocin In Lr 30 Units/500 Ml) 30 unit in 500 mls @ 999 mls/hr IV TITRATE YEVGENIY Stop: 01/01/17 10:46 Last Admin: 01/01/17 21:49 Dose: Not Given Oxytocin/Lactated Ringer's (Pitocin In Lr 30 Units/500 Ml) 30 unit in 500 mls @ 2 mls/hr IV TITRATE YEVGENIY; 2 MUNITS/MIN PRN Reason: Protocol Last Titration: 01/02/17 06:00 Dose: 999 mls/hr Ampicillin Sodium 2 gm/ Sodium (Chloride) 100 mls @ 200 mls/hr IV ONETIME ONE Stop: 01/01/17 11:29 Last Admin: 01/01/17 12:00 Dose: 200 mls/hr Dextrose/Sodium Chloride (Dextrose 5%-Normal Saline) 1,000 mls @ 60 mls/hr IV ASDIRECTED YEVGENIY Last Infusion: 01/01/17 12:00 Dose: 10 mls/hr Dextrose/Lactated Ringer's (Dextrose 5%-Lactated Ringers) 1,000 mls @ 150 mls/ hr IV ASDIRECTED YEVGENIY Stop: 01/01/17 18:15 Last Infusion: 01/01/17 18:30 Dose: 0 mls/hr Lactated Ringer's (Ringers, Lactated) 1,000 mls @ 999 mls/hr IV ASDIRECTED ONE Stop: 01/01/17 19:28 Last Admin: 01/01/17 21:49 Dose: Not Given Lactated Ringer's (Ringers, Lactated) 1,000 mls @ 20 mls/hr IV ASDIRECTED YEVGENIY Last Admin: 01/01/17 19:30 Dose: 10 mls/hr Ropivacaine/Fentanyl/NS (Fentanyl 2 Mcg-Ropiv 0.2%-Ns) Confirm Administered Dose 100 mls @ as directed .ROUTE .[facility]-MED ONE Stop: 01/01/17 18:45 Last Admin: 01/01/17 21:48 Dose: Not Given Ropivacaine/Fentanyl/NS (Fentanyl 2 Mcg-Ropiv 0.2%-Ns) Confirm Administered Dose 100 mls @ as directed .ROUTE .[employer] Stop: 01/02/17 03:33 Last Admin: 01/02/17 04:45 Dose: Not Given Magnesium Sulfate (Magnesium Sulfate 40 Gm In Water 1000 Ml) 40 gm in 1,000 mls @ 50 mls/hr IV ASDIRECTED YEVGENIY; 2 GM/HR PRN Reason: Protocol Stop: 01/03/17 05:00 Last Admin: 01/03/17 02:51 Dose: 2 gm/hr, 50 mls/hr Lidocaine HCl (Xylocaine 1%) 50 ml INJECT .ONCE PRN PRN Reason: Laceration repair Methylergonovine Maleate (Methergine) 0.2 mg IM ASDIRECTED PRN PRN Reason: Post Hemorrhage Misoprostol (Cytotec) 200 mcg PO .ONCE PRN PRN Reason: Post Hemorrhage Nalbuphine HCl (Nubain) 10 mg IVPUSH Q1H PRN PRN Reason: Pain (severe 7-10) Stop: 01/01/17 11:12 Ropivacaine (Naropin 0.2%) Confirm Administered Dose 20 ml .ROUTE .Ve[employer]in ONE Stop: 01/01/17 18:45 Last Admin: 01/01/17 21:48 Dose: Not Given Sodium Chloride (Saline Flush) 10 ml FLUSH ASDIRECTED PRN PRN Reason: Keep Vein Open Sodium Chloride (Saline Flush) 2.5 ml FLUSH ASDIRECTED PRN PRN Reason: Keep Vein Open Sterile Water (Sterile Water For Irrigation) 1,000 ml IRR ASDIRECTED PRN PRN Reason: delivery Terbutaline Sulfate (Brethine) 0.25 mg SUBCUT ASDIRECTED PRN PRN Reason: Tacysystole - Interaction Infant Disposition, : in Room with Family Infant Interaction: Holding Infant Support Person: - Recovery Exam Fundal Tone: Firm Fundal Level: 1 Fingerbreadths Below Umbilicus Fundal Placement: Midline Lochia Amount: Scant Lochia Color: Rubra/Red Perineum Description: Intact, Minimal Bruising/Swelling Episiotomy/Laceration: None Bladder Status: Voiding Urinary Elimination: Voided - Exam General: alert, oriented HEENT: Pupils equal Neck: supple Lungs: Clear to auscultation, Normal respiratory effort Cardiovascular: Regular Rate, Regular Rhythm Abdomen: bowel sounds present, soft, no tenderness, no distension Extremities: no edema Skin: warm, dry, intact Neurological: no new focal deficit Psy/Mental Status: alert, normal affect, normal mood - Problem List & Annotations (1) Pre-eclampsia, mild, delivered SNOMED Code(s): 02220986, [id number] Code(s): O14.04 - MILD TO MODERATE PRE-ECLAMPSIA, COMPLICATING CHILDBIRTH Status: Acute Current Visit: Yes - Problem List Review Problem List Initiated/Reviewed/Updated: Yes - My Orders Last 24 Hours: My Active Orders 01/02/17 07:30 Deep Tendon Reflexes [WOMSER] [facility] 01/02/17 08:30 Deep Tendon Reflexes [WOMSER] [facility] 01/02/17 09:30 Deep Tendon Reflexes [WOMSER] [facility] 01/02/17 10:30 Deep Tendon Reflexes [WOMSER] [facility] 01/02/17 11:30 Deep Tendon Reflexes [WOMSER] [facility] 01/02/17 12:30 Deep Tendon Reflexes [WOMSER] [facility] 01/02/17 13:30 Deep Tendon Reflexes [WOMSER] [facility] 01/02/17 14:30 Deep Tendon Reflexes [WOMSER] [facility] 01/02/17 15:30 Deep Tendon Reflexes [WOMSER] [facility] 01/02/17 16:30 Deep Tendon Reflexes [WOMSER] [facility] 01/02/17 17:30 Deep Tendon Reflexes [WOMSER] [facility] 01/02/17 18:30 Deep Tendon Reflexes [WOMSER] [facility] 01/02/17 19:30 Deep Tendon Reflexes [WOMSER] [facility] 01/02/17 20:30 Deep Tendon Reflexes [WOMSER] [facility] 01/02/17 21:30 Deep Tendon Reflexes [WOMSER] [facility] 01/02/17 22:30 Deep Tendon Reflexes [WOMSER] [facility] 01/02/17 23:30 Deep Tendon Reflexes [WOMSER] [facility] 01/03/17 00:30 Deep Tendon Reflexes [WOMSER] [facility] 01/03/17 01:30 Deep Tendon Reflexes [WOMSER] [facility] 01/03/17 02:30 Deep Tendon Reflexes [WOMSER] Q1H 01/03/17 03:30 Deep Tendon Reflexes [WOMSER] Q1H 01/03/17 04:30 Deep Tendon Reflexes [WOMSER] 01/03/17 05:30 Deep Tendon Reflexes [WOMSER] 01/03/17 Breakfast Regular Diet [DIET] - Assessment Assessment:: PPD#1 after , induction for preeclampsia magnesium has been off for 3 hours. Most recent BP was elevated. Denies headache or visual changes, good urine output. - Plan Plan:: Advance to regular diet, monitor BP today, will decide on discharge based on BP readings today.
[2017-01-03 15:49] VITALS: BP 135/78
== END 2017-01-03 16:55 | disposition home or self-care (01) | DRG 560 ==
LOC: MW.OBCHECK 10:01 → MW.OB 10:03 → OBSVTOIN 01-02 05:54 → MW.OB 01-02 10:00
PROVIDERS: ADMIT Obstetrics & Gynecology; ATTEND Obstetrics & Gynecology
PROC: 10E0XZZ Delivery of Products of Conception, External Approach (ICD-10-PCS; principal; 2017-01-02)
PROC: 3E033VJ Introduction of Other Hormone into Peripheral Vein, Percutaneous Approach (ICD-10-PCS; 2017-01-02)
PROC: 10907ZC Drainage of Amniotic Fluid, Therapeutic from Products of Conception, Via Natural or Artificial Opening (ICD-10-PCS; 2017-01-02)
DX: O14.04 Mild to moderate pre-eclampsia, complicating childbirth (principal); O99.02 Anemia complicating childbirth; Z3A.37 37 weeks gestation of pregnancy; Z37.0 Single live birth; Z22.330 Carrier of Group B streptococcus
CPT/HCPCS: 01967; 01996; 36415; 51703; 59025; 81003; 83735; 85014; 85018; 85027; 86850; 86900; 86901; A9270-GY; J0290; J0595; J3475; J7030; J7042; J7050; J7120

== ENCOUNTER 2020-09-24 14:44 | Inpatient (IN) | payer BC, OTHER ==
--- NOTE | 2020-09-24 16:19 | PCM.LDHP ---
L&D History of Present Illness - General Date of Service: 09/24/20 Admit Problem/Dx: Admission Diagnosis/Problem Admission Diagnosis/Problem Source of Information: Patient History Limitations: Reports: No Limitations - History of Present Illness Improves with: Reports: None Worsens with: Reports: None Associated Symptoms: Reports: N - Related Data Allergies/Adverse Reactions: Allergies Allergy/AdvReac Type Severity Reaction Status Date / Time No Known Allergies Allergy Verified 09/24/20 16:18 Home Medications: Home Meds [id number]/Ferrous Fumarate/FA [ Multivitamins] 1 tab PO DAILY 01/14/14 [History] Iron,Carb/Vit C/Vit B12/Folic [Iron 100 Plus Tablet] 1 tab PO DAILY 04/22/18 [History] oxyCODONE HCl/Acetaminophen [Percocet 5-325 mg Tablet] 1 each PO Q6H PRN #12 tablet 08/26/20 [Rx] Past Medical History - Past Health History Medical/Surgical History: Denies Medical/Surgical History HEENT History: Reports: None Cardiovascular History: Reports: None, Hypertension Respiratory History: Reports: None Gastrointestinal History: Reports: None Genitourinary History: Reports: None CORE SHAPER History: Reports: Musculoskeletal History: Reports: None Neurological History: Reports: None Psychiatric History: Reports: None Endocrine/Metabolic History: Reports: None Hematologic History: Reports: None Oncologic (Cancer) History: Reports: None Dermatologic History: Reports: None - Infectious Disease History Infectious Disease History: Reports: Chicken Pox Social & Family History - Family History Family Medical History: No Pertinent Family History - Caffeine Use Caffeine Use: Reports: Coffee Caffeine Use Comment: once in awhile in small amounts H&P Review of Systems - Review of Systems: Review Of Systems: See Below General: Reports: No Symptoms HEENT: Reports: No Symptoms Pulmonary: Reports: No Symptoms Cardiovascular: Reports: No Symptoms Gastrointestinal: Reports: No Symptoms Genitourinary: Reports: No Symptoms Musculoskeletal: Reports: No Symptoms Skin: Reports: No Symptoms Psychiatric: Reports: No Symptoms Neurological: Reports: No Symptoms Hematologic/Lymphatic: Reports: No Symptoms Immunologic: Reports: No Symptoms L&D Exam - Exam Exam: See Below - OB Specific Contraction Intensity: Mild - Coleman Score Coleman Score Cervix Position: Midposition Coleman Score Consistency: Medium Coleman Score Effacement: 51-70% Coleman Score Dilation: 3-4 cm - Exam General: Alert, Oriented HEENT: PERRLA, Conjunctiva Clear, EACs Clear, EOMI, Hearing Intact, Mucosa Moist & [place], Nares Patent, Normal Nasal Septum, Posterior Pharynx Clear, TMs Clear Neck: Supple, Trachea Midline Lungs: Clear to Auscultation, Normal Respiratory Effort Cardiovascular: Regular Rate, Regular Rhythm GI/Abdominal Exam: Normal Bowel Sounds, Soft, Non-Tender, No Organomegaly, No Distention, No Abnormal Bruit, No Mass, Pelvis Stable Rectal Exam: Normal Exam, Normal Rectal Tone Genitourinary: Normal external exam, Normal bimanual exam, Normal speculum exam Back Exam: Normal Inspection, Full Range of Motion Extremities: Normal Inspection, Normal Range of Motion, Non-Tender, No Pedal Edema, Normal Capillary Refill Skin: Warm, Dry, Intact Neurological: Cranial Nerves Intact, Reflexes Equal Bilateral Psychiatric: Alert, Normal Affect, Normal Mood Problem List Initiated/Reviewed/Updated: Yes Orders Last 24hrs: [id number] + [id number] mildly elevated blood pr will admit for induction.
[2020-09-24] MEDS ORDERED: Butorphanol 1 MG/ML SDV IVPUSH PRN (16:26)
[2020-09-24] MEDS ORDERED: Sodium Chloride 0.9% 10 ML Syringe FLUSH PRN (16:26)
[2020-09-24] MEDS ORDERED: Ondansetron 4 MG/2 ML SDV IVPUSH PRN (16:26)
[2020-09-24] MEDS ORDERED: Tranexamic Acid 1,000 MG in Sodium Chloride 0.9% 100 ML IV PRN (16:26)
[2020-09-24] MEDS ORDERED: Misoprostol 200 MCG Tab PO PRN (16:26)
[2020-09-24] MEDS ORDERED: Lidocaine 1% 50 ML MDV INJECT PRN (16:26)
[2020-09-24] MEDS ORDERED: Methylergonovine 0.2 MG/1 ML Amp IM PRN (16:26)
[2020-09-24] MEDS ORDERED: Water For Irrigation,Sterile 1,000 ML Container IRR PRN (16:26)
[2020-09-24] MEDS ORDERED: Sodium Chloride 0.9% 2.5 ML Syringe FLUSH PRN (16:26)
[2020-09-24] MEDS ORDERED: Carboprost Tromethamine 250 MCG/1 ML Amp IM PRN (16:26)
[2020-09-24] MEDS ORDERED: Sodium Chloride 0.9% 10 ML SDV IV PRN (16:26)
[2020-09-24] MEDS ORDERED: Nalbuphine 10 MG/1 ML Vial IVPUSH PRN (16:26)
[2020-09-24] MEDS ORDERED: Misoprostol 50 MCG (1/2 of 100 MCG) Tab PO ONE ×2 (16:29→23:29)
[2020-09-24] MEDS ORDERED: Oxytocin/0.9 % Sodium Chloride 30 UNIT/500 ML BAG IV SCH (16:30)
[2020-09-24] MEDS ORDERED: Acetaminophen 500 MG Tab PO ONE (18:35)
[2020-09-25] MEDS ORDERED: Terbutaline 1 MG/ML SDV SUBCUT PRN (04:12)
[2020-09-25] MEDS ORDERED: Oxytocin/0.9 % Sodium Chloride 30 UNIT/500 ML BAG IV SCH (04:15)
[2020-09-25] MEDS: Lactated Ringers 1,000 ML IV SCH ×5 (08:40→20:19)
[2020-09-25] MEDS ORDERED: Lidocaine 2% with EPINEPHrine 1:200,000 20 ML SDV ONE (09:13)
--- NOTE | 2020-09-25 09:34 | PCM.PREANE ---
Preanesthetic Assessment - Anesthesia/Transfusion/Family Hx Anesthesia History: Prior Anesthesia Without Reaction Family History of Anesthesia Reaction: No Transfusion History: No Prior Transfusion(s) - Review of Systems Cardiovascular: Other (Hypertension with this ) - Physical Assessment NPO Status Date: 09/25/20 NPO Status Time: 00:05 Height: 1.68 m Weight: 86.183 kg ASA Class: 2 Airway Class: Mallampati = 2 Dentition: Reports: Normal Dentition - Lab Values: Laboratory Last Values WBC 9.96 K/uL (4.0-11.0) 09/24/20 16:58 RBC 5.44 M/uL (4.30-5.90) 09/24/20 16:58 Hgb 10.8 g/dL (12.0-16.0) L 09/24/20 16:58 Hct 33.0 % (36.0-46.0) L 09/24/20 16:58 MCV 60.7 fL (80.0-98.0) L 09/24/20 16:58 MCH 19.9 pg (27.0-32.0) L 09/24/20 16:58 MCHC 32.7 g/dL (31.0-37.0) 09/24/20 16:58 RDW Std Deviation 43.4 fl (28.0-62.0) 09/24/20 16:58 RDW Coeff of Marvel 20 % (11.0-15.0) H 09/24/20 16:58 Plt Count 409 K/uL (150-400) H 09/24/20 16:58 MPV 9.40 fL (7.40-12.00) 09/24/20 16:58 Nucleated RBC % 0.0 /100WBC 09/24/20 16:58 Nucleated RBCs # 0 K/uL 09/24/20 16:58 SARS-CoV-2 RNA (NAE) NEGATIVE (NEGATIVE) 09/24/20 17:00 Blood Type B POSITIVE 09/24/20 16:58 Antibody Screen NEGATIVE 09/24/20 16:58 - Allergies Allergies/Adverse Reactions: Allergies Allergy/AdvReac Type Severity Reaction Status Date / Time No Known Allergies Allergy Verified 09/24/20 16:18 - Acknowledgements Anesthesia Type Planned: Epidural Pt an Appropriate Candidate for the Planned Anesthesia: Yes Alternatives and Risks of Anesthesia Discussed w Pt/Guardian: Yes Pt/Guardian Understands and Agrees with Anesthesia Plan: Yes PreAnesthesia Questionnaire - Past Health History Medical/Surgical History: Denies Medical/Surgical History HEENT History: Reports: None Cardiovascular History: Reports: None, Hypertension Respiratory History: Reports: None Gastrointestinal History: Reports: None Genitourinary History: Reports: None 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: Musculoskeletal History: Reports: None Neurological History: Reports: None Psychiatric History: Reports: None Endocrine/Metabolic History: Reports: None Hematologic History: Reports: None Oncologic (Cancer) History: Reports: None Dermatologic History: Reports: None - Infectious Disease History Infectious Disease History: Reports: Chicken Pox - SUBSTANCE USE Tobacco Use Status *Q: Never Tobacco User Second Hand Smoke Exposure: No Recreational Drug Use History: No - HOME MEDS Home Medications: Home Meds PNV95/Ferrous Fumarate/FA [ Multivitamins] 1 tab PO DAILY 01/14/14 [History] Iron,Carb/Vit C/Vit B12/Folic [Iron 100 Plus Tablet] 1 tab PO DAILY 04/22/18 [History] oxyCODONE HCl/Acetaminophen [Percocet 5-325 mg Tablet] 1 each PO Q6H PRN #12 tablet 08/26/20 [Rx] - CURRENT (IN HOUSE) MEDS Current Meds: Current Medications Butorphanol Tartrate (Butorphanol 1 Mg/Ml Sdv) 1 mg IVPUSH Q1H PRN PRN Reason: Pain Carboprost Tromethamine (Carboprost Tromethamine 250 Mcg/1 Ml Amp) 250 mcg IM ASDIRECTED PRN PRN Reason: Post Hemorrhage Oxytocin/Sodium Chloride (Oxytocin 30 Unit/500 Ml-Ns) 30 unit in 500 mls @ 500 mls/hr IV TITRATE YEVGENIY Tranexamic Acid 1,000 mg/ (Sodium Chloride) 110 mls @ 660 mls/hr IV ONETIME PRN PRN Reason: Bleeding Lactated Ringer's (Ringers, Lactated) 1,000 mls @ 150 mls/hr IV ASDIRECTED YEVGENIY Oxytocin/Sodium Chloride (Oxytocin 30 Unit/500 Ml-Ns) 30 unit in 500 mls @ 2 mls/hr IV TITRATE YEVGENIY; Protocol Last Titration: 09/25/20 08:24 Dose: 0 munits/min, 0 mls/hr Documented by: Lidocaine HCl (Lidocaine 1% 50 Ml Mdv) 50 ml INJECT ONETIME PRN PRN Reason: Laceration repair Methylergonovine Maleate (Methylergonovine 0.2 Mg/1 Ml Amp) 0.2 mg IM ASDIRECTED PRN PRN Reason: Post Hemorrhage Misoprostol (Misoprostol 200 Mcg Tab) 200 mcg PO ONETIME PRN PRN Reason: Post Hemorrhage Nalbuphine HCl (Nalbuphine 10 Mg/1 Ml Vial) 10 mg IVPUSH Q1H PRN PRN Reason: Pain (severe 7-10) Ondansetron HCl (Ondansetron 4 Mg/2 Ml Sdv) 4 mg IVPUSH Q4H PRN PRN Reason: Nausea/Vomiting Sodium Chloride (Sodium Chloride 0.9% 10 Ml Syringe) 10 ml FLUSH ASDIRECTED PRN PRN Reason: Keep Vein Open Sodium Chloride (Sodium Chloride 0.9% 2.5 Ml Syringe) 2.5 ml FLUSH ASDIRECTED PRN PRN Reason: Keep Vein Open Sodium Chloride (Sodium Chloride 0.9% 10 Ml Sdv) 10 ml IV ASDIRECTED PRN PRN Reason: IV Use Sterile Water (Water For Irrigation,Sterile 1,000 Ml Container) 1,000 ml IRR ASDIRECTED PRN PRN Reason: delivery Terbutaline Sulfate (Terbutaline 1 Mg/Ml Sdv) 0.25 mg SUBCUT ASDIRECTED PRN PRN Reason: Tacysystole Discontinued Medications Acetaminophen (Acetaminophen 500 Mg Tab) 1,000 mg PO ONETIME ONE Stop: 09/24/20 18:36 Last Admin: 09/24/20 18:47 Dose: 1,000 mg Documented by: Lidocaine/Epinephrine (Lidocaine 2% With Epinephrine 1:200,000 20 Ml Sdv) Confirm Administered Dose 20 ml .ROUTE .STK-MED ONE Stop: 09/25/20 09:14 Misoprostol (Misoprostol 50 Mcg (1/2 Of 100 Mcg) Tab) 50 mcg PO ONETIME ONE Stop: 09/24/20 16:30 Last Admin: 09/24/20 16:50 Dose: 50 mcg Documented by: Misoprostol (Misoprostol 50 Mcg (1/2 Of 100 Mcg) Tab) 50 mcg PO ONETIME ONE Stop: 09/24/20 23:30 Last Admin: 09/25/20 00:04 Dose: 50 mcg Documented by:
--- NOTE | 2020-09-25 09:37 | PCM.PRNOTE ---
- Free Text/Narrative Note: Anes Note I was called to provide epidural anesthesia for External version for this patient with a breech presentation. Consent obtained. Sitting position level L3-L4 midline approach. Sterile technique. Chloraprep scrub to lumbar area. Sterile fenestrated drape applied. Epidural space easily achieved single attempt with ease using DAIANA technique. DAIANA at 3 cm. Cath threaded 5 cm with ease. Cath secured a t skin using sterile clear adhesive dressing. 0929 Test 3 cc 1.5% lido with epi negative. 0933 5 cc 2% lido with epi. Time with patient [id number] Nicholas Martinez CRNA
--- NOTE | 2020-09-25 10:23 | PCM.PRNOTE ---
- Free Text/Narrative Note: Anes Note 0950 Epidural dosed with 10 cc 2% lido with epi. Nicholas Martinez [employer]
--- NOTE | 2020-09-25 12:59 | US ---
INDICATION: External version. COMPARISON: Ob ultrasound 08/26/2020. TECHNIQUE: Real time muniz scale imaging of the fetus was performed as well as color Doppler analysis of the umbilical vessels. FINDINGS: Sonographic imaging demonstrates a single living intrauterine gestation. The fetus has a cardiac rate of 63-96 beats per minute. The placenta is located posteriorly and fundally. Limited images obtained during external version from breech to cephalic position. IMPRESSION: 1. Limited images obtained during external version from breech to cephalic position. 2. The heart rate is noted to be low measuring 63-96 beats per minute. Correlate clinically. Dictated by Karina Hernandez MD @ Sep 25 2020 12:52PM Signed by Dr. Karina Hernandez @ Sep 25 2020 12:58PM
[2020-09-25] MEDS ORDERED: Ropivacaine HCl/PF 100 ML ONE ×2 (15:44→20:12)
[2020-09-25] MEDS ORDERED: fentaNYL 100 MCG/2 ML SDV ONE ×2 (15:44→20:12)
--- NOTE | 2020-09-25 16:04 | PCM.PRNOTE ---
- Free Text/Narrative Note: Anes Note Patient is requesting epidural analgesia begin. 1550 Epidural loaded with 10 cc 0.2% ropiviciane with 1 mcg cc fentanyl in slow divided doses. 1555 Pump started with 90 cc same solution. Rate is 8 cc hr with 6 c q 20 min prn bolus. Rahul well. Time with patient [id number] Nicholas Martinez CRNA
[2020-09-25] MEDS ORDERED: Misoprostol 50 MCG (1/2 of 100 MCG) Tab PO ONE (16:29)
--- NOTE | 2020-09-25 20:37 | PCM.PRNOTE ---
- Free Text/Narrative Note: Anes Note A new epidural infusion bag was placed. 100 cc 0.2% ropivicaine with 1 mcg cc fentanyl added was placed. Rate is 8 cc hr with 6 cc q 20 min prn bolus. Time with patient Nicholas Martinez CRNA
[2020-09-26] MEDS ORDERED: Acetaminophen 500 MG Tab PO PRN ×2 (04:02)
[2020-09-26] MEDS ORDERED: Ibuprofen 400 MG Tab PO PRN (04:02)
[2020-09-26] MEDS ORDERED: Witch Hazel Medicated Pads 40/Jar TOP PRN (04:02)
[2020-09-26] MEDS ORDERED: Benzocaine/Menthol 20%-0.5% Spray 78 GM Cannister TOP PRN (04:02)
[2020-09-26] MEDS ORDERED: Lanolin 100% Cream 7 GM Tube TOP PRN (04:02)
[2020-09-26] MEDS ORDERED: Docusate Sodium 100 MG Cap PO PRN (04:02)
[2020-09-26] MEDS ORDERED: Bisacodyl 10 MG Supp RECTAL PRN (04:02)
--- NOTE | 2020-09-26 04:32 | PCM.DEL ---
L & D Note - General Info Date of Service: 09/26/20 Mother's Due Date: 09/26/20 - Delivery Note Labor: Spontaneous Delivery Outcome: Livebirth Presentation: Vertex Nuchal Cord: None Prep: Povidone-Iodine (Betadine Anesthesia Type: Epidural Amniotic Fluid Description: Clear Episiotomy Type: None Laceration: None Placenta: Intact, Spontaneous Cord: 3 Vessels Estimated Blood Loss: 250 Resuscitation Needed: Yes : Suctioned, Bulb Syringe, Stimulated, Warmed Induction Criteria - Coleman Score Coleman Score Dilation: 3-4 cm Coleman Score Effacement: 60-70% Coleman Score Infant's Station: -3 Coleman Score Consistency: Medium Coleman Score Cervix Position: Midposition Coleman Score Total: 6 Coleman Score Presenting Part: Reports: Cephalic - Induction Gestational Age >/= 39 wks: Yes Estimated Pelvis: Reports: Adequate Reassuring Monitoring Strip: Yes Absence of Tachy Systole: Yes - Augmentation Estimated Pelvis: Reports: Adequate Weight Estimated:: Reports: SGA Reassuring Monitoring Strip: Yes Absence of Tachy Systole: Yes - General Info Date of Service: 09/26/20 Admission Dx/Problem (Free Text): Admission Diagnosis/Problem Admission Diagnosis/Problem Subjective Update: Patient was admitted for induction at 39+ wGA. Baby was found to be breech. ECV was successfully performed under epidural anesthesia 18hrs ago and AROM was performed, clear minimal fluid. At that point her SVE was 3/50/-3 Mother was then given oral cytocec with subsequent SVE 5/80/-3 She was then started on pitocin for augmentation. When patient reached 8cm dilation 6hrs later, she was having reccurrent variable with intermittent prolong decels. Pitocin was decreased, then eventually turned off without resolution of the variable decels. SVE was found to be 10/100/+1. [employer] was called for the delivery. When the delivery crew was all present, patient was checked and found to have a prolapsed cord. Attempt to quickly deliver baby was unsuccessful. Provider called for an OR team, then successfully pushed the cord back, behind the head. FHT was stable in the 150's. Attempt for another trial of vaginal delivery, while monitoring the FHT (which remained in the 150's for most of the stage 2 of the delivery), resulted in a successful delivery after ~7-10mns. 30yo G4 now P4005 @ 39+w GA S/P IOL. course was significant for elevated BPs not requiring medication. of a live male, 6lb 6oz and Apgars 2/6/8. Delivered ZAKIA, no nuchal cord, No meconium. Vertex and body delivered without difficulty. Cord clamped and cut. Baby appeared limp and minimally responsive and was handed to the pediatric staff. Placenta delivered spontaneously, intact. Fundus firm, minimal bleeding. Placenta appears intact with 3 vessel cord. Perineum and vagina inspected: no laceration appreciated EBL 250cc. Hemostasis. Patient tolerated procedure well, recovering in LDR. Infant by her side. Functional Status: Reports: Pain Controlled - Review of Systems General: Reports: No Symptoms HEENT: Reports: No Symptoms Pulmonary: Reports: No Symptoms Cardiovascular: Reports: No Symptoms Gastrointestinal: Reports: No Symptoms Genitourinary: Reports: No Symptoms Musculoskeletal: Reports: No Symptoms Skin: Reports: No Symptoms Neurological: Reports: No Symptoms Psychiatric: Reports: No Symptoms - Patient Data Weight - Most Recent: 86.183 kg Med Orders - Current: Current Medications Butorphanol Tartrate (Butorphanol 1 Mg/Ml Sdv) 1 mg IVPUSH Q1H PRN PRN Reason: Pain Carboprost Tromethamine (Carboprost Tromethamine 250 Mcg/1 Ml Amp) 250 mcg IM ASDIRECTED PRN PRN Reason: Post Hemorrhage Oxytocin/Sodium Chloride (Oxytocin 30 Unit/500 Ml-Ns) 30 unit in 500 mls @ 500 mls/hr IV TITRATE YEVGENIY Tranexamic Acid 1,000 mg/ (Sodium Chloride) 110 mls @ 660 mls/hr IV ONETIME PRN PRN Reason: Bleeding Lactated Ringer's (Ringers, Lactated) 1,000 mls @ 150 mls/hr IV ASDIRECTED YEVGENIY Last Admin: 09/25/20 20:19 Dose: 150 mls/hr Documented by: Oxytocin/Sodium Chloride (Oxytocin 30 Unit/500 Ml-Ns) 30 unit in 500 mls @ 2 mls/hr IV TITRATE YEVGENIY; Protocol Last Titration: 09/25/20 20:45 Dose: 4 munits/min, 4 mls/hr Documented by: Lidocaine HCl (Lidocaine 1% 50 Ml Mdv) 50 ml INJECT ONETIME PRN PRN Reason: Laceration repair Methylergonovine Maleate (Methylergonovine 0.2 Mg/1 Ml Amp) 0.2 mg IM ASDIRECTED PRN PRN Reason: Post Hemorrhage Misoprostol (Misoprostol 200 Mcg Tab) 200 mcg PO ONETIME PRN PRN Reason: Post Hemorrhage Nalbuphine HCl (Nalbuphine 10 Mg/1 Ml Vial) 10 mg IVPUSH Q1H PRN PRN Reason: Pain (severe 7-10) Ondansetron HCl (Ondansetron 4 Mg/2 Ml Sdv) 4 mg IVPUSH Q4H PRN PRN Reason: Nausea/Vomiting Last Admin: 09/25/20 11:02 Dose: 4 mg Documented by: Sodium Chloride (Sodium Chloride 0.9% 10 Ml Syringe) 10 ml FLUSH ASDIRECTED PRN PRN Reason: Keep Vein Open Sodium Chloride (Sodium Chloride 0.9% 2.5 Ml Syringe) 2.5 ml FLUSH ASDIRECTED PRN PRN Reason: Keep Vein Open Sodium Chloride (Sodium Chloride 0.9% 10 Ml Sdv) 10 ml IV ASDIRECTED PRN PRN Reason: IV Use Sterile Water (Water For Irrigation,Sterile 1,000 Ml Container) 1,000 ml IRR ASDIRECTED PRN PRN Reason: delivery Terbutaline Sulfate (Terbutaline 1 Mg/Ml Sdv) 0.25 mg SUBCUT ASDIRECTED PRN PRN Reason: Tacysystole Discontinued Medications Acetaminophen (Acetaminophen 500 Mg Tab) 1,000 mg PO ONETIME ONE Stop: 09/24/20 18:36 Last Admin: 09/24/20 18:47 Dose: 1,000 mg Documented by: Fentanyl (Fentanyl 100 Mcg/2 Ml Sdv) Confirm Administered Dose 100 mcg .ROUTE .STK-MED ONE Stop: 09/25/20 15:45 Last Admin: 09/25/20 19:37 Dose: Not Given Documented by: Fentanyl (Fentanyl 100 Mcg/2 Ml Sdv) Confirm Administered Dose 100 mcg .ROUTE .STK-MED ONE Stop: 09/25/20 20:13 Ropivacaine (Naropin 0.2%) Confirm Administered Dose 100 mls @ as directed .ROUTE .STK-MED ONE Stop: 09/25/20 15:45 Last Admin: 09/25/20 19:37 Dose: Not Given Documented by: Ropivacaine (Naropin 0.2%) Confirm Administered Dose 100 mls @ as directed .ROUTE .STK-MED ONE Stop: 09/25/20 20:13 Lidocaine/Epinephrine (Lidocaine 2% With Epinephrine 1:200,000 20 Ml Sdv) Confirm Administered Dose 20 ml .ROUTE .STK-MED ONE Stop: 09/25/20 09:14 Last Admin: 09/25/20 19:37 Dose: Not Given Documented by: Misoprostol (Misoprostol 50 Mcg (1/2 Of 100 Mcg) Tab) 50 mcg PO ONETIME ONE Stop: 09/24/20 16:30 Last Admin: 09/24/20 16:50 Dose: 50 mcg Documented by: Misoprostol (Misoprostol 50 Mcg (1/2 Of 100 Mcg) Tab) 50 mcg PO ONETIME ONE Stop: 09/24/20 23:30 Last Admin: 09/25/20 00:04 Dose: 50 mcg Documented by: Misoprostol (Misoprostol 50 Mcg (1/2 Of 100 Mcg) Tab) 50 mcg PO ONETIME ONE Stop: 09/25/20 16:30 Last Admin: 09/25/20 16:48 Dose: 50 mcg Documented by: - Exam General: Alert, Oriented Lungs: Normal Respiratory Effort Cardiovascular: Regular Rhythm GI/Abdominal Exam: Soft, Non-Tender Extremities: Normal Inspection Psy/Mental Status: Alert, Normal Affect, Normal Mood - Problem List & Annotations (1) Term delivered SNOMED Code(s): 87594117, [id number] Code(s): O80 - ENCOUNTER FOR FULL-TERM UNCOMPLICATED DELIVERY Status: Acute Priority: High Current Visit: Yes - Problem List Review Problem List Initiated/Reviewed/Updated: Yes - My Orders Last 24 Hours: My Active Orders 09/26/20 04:02 Patient Status [ADT] Routine May Shower [RC] ASDIRECTED Up ad Marily [RC] ASDIRECTED Vital Signs [RC] PER UNIT ROUTINE Acetaminophen [Tylenol Extra Strength] 1,000 mg PO Q4H PRN Acetaminophen [Tylenol Extra Strength] 500 mg PO Q4H PRN Benzocaine/Menthol [Dermoplast Pain Relief 20%-0.5% [place]ourt] 78 gm TOP ASDIRECTED PRN Docusate Sodium [Colace] 100 mg PO BID PRN Ibuprofen [Motrin] 400 mg PO Q4H PRN Ibuprofen [Motrin] 800 mg PO Q6H PRN Lanolin [Lansinoh HPA] See Dose Instructions TOP ASDIRECTED PRN bisacodyL [Dulcolax] 10 mg RECTAL ONETIME PRN witch Jaclyn [Tucks] 1 pad TOP ASDIRECTED PRN Assess Lochia [WOMSER] Per Unit Routine Assess Uterine Involution [WOMSER] Per Unit Routine Peripheral IV Discontinue [OM.PC] Routine 09/27/20 05:11 HEMOGLOBIN/HEMATOCRIT,HH [HEME] Timed - Plan Plan:: Routine care Administer Nifedipine 30mg XL for persistent BPs >160/90
--- NOTE | 2020-09-26 07:22 | PCM.POSTAN ---
POST ANESTHESIA ASSESSMENT - MENTAL STATUS Mental Status: Alert, Oriented - RESPIRATORY Respiratory Status: Respiratory Rate WNL, Airway Patent, O2 Saturation Stable - CARDIOVASCULAR CV Status: Pulse Rate WNL, Blood Pressure Stable - GASTROINTESTINAL GI Status: No Symptoms - POST OP HYDRATION Hydration Status: Adequate & Stable
[2020-09-26] MEDS: Ibuprofen 800 MG Tab PO PRN ×2 (09:09→23:35)
--- NOTE | 2020-09-26 12:22 | OR ---
SURGEON: Johann Hernandez MD DATE OF PROCEDURE: 09/25/2020 Ms. De La Torre is a 30-year-old patient. She is para 3-0-0-3. She is admitted yesterday in early labor. The patient is evaluated and examined is found to be in complete breech presentation. I discussed the option of external version with the patient and explained the procedure to her in detail, and after the patient agreed to that and after she signed consent and after adequate level of epidural anesthesia and with a Sanford catheter in the bladder, external version was performed by me and assisted by Dr. Sarahi Wagner, and it was successful. We used ultrasound to guide the head to the pelvis. Once the head was in the pelvis then artificial rupture of the membranes was done with clear fluid and after that once the patient was settled down, we will start her on Pitocin to augment her labor. ANNA MARIE / JOE /[id number]
--- NOTE | 2020-09-27 08:10 | PCM.PNPP ---
- General Info Date of Service: 09/27/20 Admission Dx/Problem (Free Text): Admission Diagnosis/Problem Admission Diagnosis/Problem Patient was admitted for induction at 39+ wGA. Baby was found to be breech. ECV was successfully performed under epidural anesthesia 18hrs ago and AROM was performed, clear minimal fluid. At that point her SVE was 3/50/-3 Mother was then given oral cytocec with subsequent SVE 5/80/-3 She was then started on pitocin for augmentation. When patient reached 8cm dilation 6hrs later, she was having reccurrent variable with intermittent prolong decels. Pitocin was decreased, then eventually turned off without resolution of the variable decels. SVE was found to be 10/100/+1. Emergency Telecommunications Dispatcher was called for the delivery. When the delivery crew was all present, patient was checked and found to have a prolapsed cord. Attempt to quickly deliver baby was unsuccessful. Provider called for an OR team, then successfully pushed the cord back, behind the head. FHT was stable in the 150's. Attempt for another trial of vaginal delivery, while monitoring the FHT (which remained in the 150's for most of the stage 2 of the delivery), resulted in a successful delivery after ~7-10mns. 30yo G4 now P4005 @ 39+w GA S/P IOL. course was significant for elevated BPs not requiring medication. of a live male, 6lb 6oz and Apgars 2/6/8. Delivered ZAKIA, no nuchal cord, No meconium. Vertex and body delivered without difficulty. Cord clamped and cut. Baby appeared limp and minimally responsive and was handed to the pediatric staff. Placenta delivered spontaneously, intact. Fundus firm, minimal bleeding. Placen ta appears intact with 3 vessel cord. Perineum and vagina inspected: no laceration appreciated EBL 250cc. Hemostasis. Patient tolerated procedure well, recovering in LDR. Infant by her side. Subjective Update: Wil is a 30 yo current PPD1 S/P uncomplicated to term NBM. B pos, RI, GBS neg. Patient has no complaints or concerns at this time. Patient is bottle and fairly well, resting comfortably in bed with in nursery. Patient reports she is eating, voiding, ambulating independently and without difficulty. Patient denies any problems or concerns at this time except mild-moderate intermittent uterine cramping relieved with Ibuprofen. Patient reports small to moderate vaginal bleeding with no clots. Patient verbalizes her readiness to be discharged home today. Functional Status: Reports: Pain Controlled, Tolerating Diet, Ambulating, Urinating - Review of Systems General: Reports: No Symptoms HEENT: Reports: No Symptoms Pulmonary: Reports: No Symptoms Cardiovascular: Reports: No Symptoms Gastrointestinal: Reports: No Symptoms Genitourinary: Reports: No Symptoms Musculoskeletal: Reports: No Symptoms Skin: Reports: No Symptoms Neurological: Reports: No Symptoms Psychiatric: Reports: No Symptoms - General Info Date of Service: 09/27/20 - Patient Data Vital Signs - Most Recent: Last Vital Signs Temp 98.3 F 09/26/20 19:40 Pulse 61 09/26/20 19:40 Resp 18 09/26/20 19:40 BP 147/93 H 09/26/20 19:40 Pulse Ox 100 09/26/20 19:40 Weight - Most Recent: 190 lb Lab Results - Last 24 Hours: Laboratory Results - last 24 hr 09/27/20 Range/Units 05:23 Hgb 9.4 L (12.0-16.0) g/dL Hct 28.8 L (36.0-46.0) % Med Orders - Current: Current Medications Acetaminophen (Acetaminophen 500 Mg Tab) 500 mg PO Q4H PRN PRN Reason: Pain Acetaminophen (Acetaminophen 500 Mg Tab) 1,000 mg PO Q4H PRN PRN Reason: Pain Benzocaine/Menthol (Benzocaine/Menthol 20%-0.5% Gray 78 Gm Cannister) 78 gm TOP ASDIRECTED PRN PRN Reason: Perineal Comfort Measure Bisacodyl (Bisacodyl 10 Mg Supp) 10 mg RECTAL ONETIME PRN PRN Reason: Constipation Butorphanol Tartrate (Butorphanol 1 Mg/Ml Sdv) 1 mg IVPUSH Q1H PRN PRN Reason: Pain Carboprost Tromethamine (Carboprost Tromethamine 250 Mcg/1 Ml Amp) 250 mcg IM ASDIRECTED PRN PRN Reason: Post Hemorrhage Docusate Sodium (Docusate Sodium 100 Mg Cap) 100 mg PO BID PRN PRN Reason: Constipation Emollient Ointment (Lanolin 100% Cream 7 Gm Tube) 0 gm TOP ASDIRECTED PRN PRN Reason: Sore Nipples Oxytocin/Sodium Chloride (Oxytocin 30 Unit/500 Ml-Ns) 30 unit in 500 mls @ 500 mls/hr IV TITRATE YEVGENIY Tranexamic Acid 1,000 mg/ (Sodium Chloride) 110 mls @ 660 mls/hr IV ONETIME PRN PRN Reason: Bleeding Lactated Ringer's (Ringers, Lactated) 1,000 mls @ 150 mls/hr IV ASDIRECTED YEVGENIY Last Admin: 09/25/20 20:19 Dose: 150 mls/hr Documented by: Oxytocin/Sodium Chloride (Oxytocin 30 Unit/500 Ml-Ns) 30 unit in 500 mls @ 2 mls/hr IV TITRATE YEVGENIY; Protocol Last Titration: 09/25/20 20:45 Dose: 4 munits/min, 4 mls/hr Documented by: Ibuprofen (Ibuprofen 400 Mg Tab) 400 mg PO Q4H PRN PRN Reason: Pain Ibuprofen (Ibuprofen 800 Mg Tab) 800 mg PO Q6H PRN PRN Reason: Pain Last Admin: 09/26/20 23:35 Dose: 800 mg Documented by: Lidocaine HCl (Lidocaine 1% 50 Ml Mdv) 50 ml INJECT ONETIME PRN PRN Reason: Laceration repair Methylergonovine Maleate (Methylergonovine 0.2 Mg/1 Ml Amp) 0.2 mg IM ASDIRECTED PRN PRN Reason: Post Hemorrhage Misoprostol (Misoprostol 200 Mcg Tab) 200 mcg PO ONETIME PRN PRN Reason: Post Hemorrhage Nalbuphine HCl (Nalbuphine 10 Mg/1 Ml Vial) 10 mg IVPUSH Q1H PRN PRN Reason: Pain (severe 7-10) Ondansetron HCl (Ondansetron 4 Mg/2 Ml Sdv) 4 mg IVPUSH Q4H PRN PRN Reason: Nausea/Vomiting Last Admin: 09/25/20 11:02 Dose: 4 mg Documented by: Polysaccharide Iron Complex (Iron Polysaccharides Complex 150 Mg Cap) 150 mg PO DAILY YEVGENIY Sodium Chloride (Sodium Chloride 0.9% 10 Ml Syringe) 10 ml FLUSH ASDIRECTED PRN PRN Reason: Keep Vein Open Sodium Chloride (Sodium Chloride 0.9% 2.5 Ml Syringe) 2.5 ml FLUSH ASDIRECTED PRN PRN Reason: Keep Vein Open Sodium Chloride (Sodium Chloride 0.9% 10 Ml Sdv) 10 ml IV ASDIRECTED PRN PRN Reason: IV Use Sterile Water (Water For Irrigation,Sterile 1,000 Ml Container) 1,000 ml IRR ASDIRECTED PRN PRN Reason: delivery Terbutaline Sulfate (Terbutaline 1 Mg/Ml Sdv) 0.25 mg SUBCUT ASDIRECTED PRN PRN Reason: Tacysystole Witch Paula (Witch Paula Medicated Pads 40/Jar) 1 pad TOP ASDIRECTED PRN PRN Reason: comfort care Discontinued Medications Acetaminophen (Acetaminophen 500 Mg Tab) 1,000 mg PO ONETIME ONE Stop: 09/24/20 18:36 Last Admin: 09/24/20 18:47 Dose: 1,000 mg Documented by: Fentanyl (Fentanyl 100 Mcg/2 Ml Sdv) Confirm Administered Dose 100 mcg .ROUTE .STK-MED ONE Stop: 09/25/20 15:45 Last Admin: 09/25/20 19:37 Dose: Not Given Documented by: Fentanyl (Fentanyl 100 Mcg/2 Ml Sdv) Confirm Administered Dose 100 mcg .ROUTE .STK-MED ONE Stop: 09/25/20 20:13 Ropivacaine (Naropin 0.2%) Confirm Administered Dose 100 mls @ as directed .ROUTE .STK-MED ONE Stop: 09/25/20 15:45 Last Admin: 09/25/20 19:37 Dose: Not Given Documented by: Ropivacaine (Naropin 0.2%) Confirm Administered Dose 100 mls @ as directed .ROUTE .STK-MED ONE Stop: 09/25/20 20:13 Lidocaine/Epinephrine (Lidocaine 2% With Epinephrine 1:200,000 20 Ml Sdv) Confirm Administered Dose 20 ml .ROUTE .STK-MED ONE Stop: 09/25/20 09:14 Last Admin: 09/25/20 19:37 Dose: Not Given Documented by: Misoprostol (Misoprostol 50 Mcg (1/2 Of 100 Mcg) Tab) 50 mcg PO ONETIME ONE Stop: 09/24/20 16:30 Last Admin: 09/24/20 16:50 Dose: 50 mcg Documented by: Misoprostol (Misoprostol 50 Mcg (1/2 Of 100 Mcg) Tab) 50 mcg PO ONETIME ONE Stop: 09/24/20 23:30 Last Admin: 09/25/20 00:04 Dose: 50 mcg Documented by: Misoprostol (Misoprostol 50 Mcg (1/2 Of 100 Mcg) Tab) 50 mcg PO ONETIME ONE Stop: 09/25/20 16:30 Last Admin: 09/25/20 16:48 Dose: 50 mcg Documented by: - Interaction Infant Disposition, : to Nursery Infant Interaction: Not Interacting Infant Feeding: Attempted ; Nursed Fair/Poor, Bottle Fed Infant Support Person: - Recovery Exam Fundal Tone: Firm Fundal Level: 1 Fingerbreadths Below Umbilicus Fundal Placement: Midline Lochia Amount: Small Lochia Color: Rubra/Red Perineum Description: Intact, Minimal Bruising/Swelling Episiotomy/Laceration: None Bladder Status: Voiding Urinary Elimination: Voided - Exam General: Alert, Oriented, Cooperative, No Acute Distress HEENT: Pupils Equal, Mucous Membr. Moist/[place] Neck: Supple Lungs: Clear to Auscultation, Normal Respiratory Effort Cardiovascular: Regular Rate, Regular Rhythm GI/Abdominal Exam: Normal Bowel Sounds, Soft, Non-Tender, No Organomegaly, No Distention Extremities: Normal Inspection, Normal Range of Motion, Non-Tender, No Pedal Edema, Normal Capillary Refill Skin: Warm, Dry, Intact Wound/Incisions: Healing Well Psy/Mental Status: Alert, Normal Affect, Normal Mood - Problem List & Annotations (1) (spontaneous vaginal delivery) SNOMED Code(s): 808713982 Code(s): O80 - ENCOUNTER FOR FULL-TERM UNCOMPLICATED DELIVERY Status: Acute Priority: High Current Visit: Yes (2) Lactating mother SNOMED Code(s): 199273287, 915689451 Code(s): Z39.1 - ENCOUNTER FOR CARE AND EXAMINATION OF LACTATING MOTHER Status: Acute Priority: High Current Visit: Yes - Problem List Review Problem List Initiated/Reviewed/Updated: Yes - My Orders Last 24 Hours: My Active Orders 09/27/20 09:00 Iron Polysaccharides Complex [Ferrex 150] 150 mg PO DAILY - Plan Plan:: Hemodynamically stable, afebrile. Mild to moderate BP elevation to 140s/90s. Plan to start nifedipine 30 mg XL if severe hypertension or symptoms occur. Hemoglobin 9.4, start 1 tablet 150 mg iron supplementation daily, F/U as indicated. Continue PO analgesia as ordered. Continue EBFing, eating, voiding, ambulating independently. Plan to D/C this PM pending hemodynamic stability and NBM assessment. Dr. Hernandez notified and agreeable with POC.
--- NOTE | 2020-09-27 08:38 | PCM48HPAN ---
Post Anesthesia Note - EVALUATION WITHIN 48HRS OF ANESTHETIC Vital Signs in Normal Range: Yes Patient Participated in Evaluation: Yes Respiratory Function Stable: Yes Airway Patent: Yes Cardiovascular Function Stable: Yes Hydration Status Stable: Yes Pain Control Satisfactory: Yes Nausea and Vomiting Control Satisfactory: Yes Mental Status Recovered: Yes Vital Signs: Last Vital Signs Temp 36.8 C 09/26/20 19:40 Pulse 61 09/26/20 19:40 Resp 18 09/26/20 19:40 BP 147/93 H 09/26/20 19:40 Pulse Ox 100 09/26/20 19:40
[2020-09-27] MEDS ORDERED: Iron Polysaccharides Complex 150 MG Cap PO SCH (09:00)
[2020-09-27 11:55] VITALS: BP 147/97; PULSE 73
--- NOTE | 2020-09-27 13:42 | PCM.DCSUM1 ---
Discharge Summary - Hospital Course Diagnosis: Stroke: No - Discharge Data Discharge Date: 09/27/20 Discharge Disposition: Home, Self-Care 01 Condition: Good - Referral to Home Health Primary Care Physician: PCP None - Patient Instructions Diet: Usual Diet as Tolerated Activity: As Tolerated Showering/Bathing: May Shower - Discharge Plan Home Medications: Home Meds PNV95/Ferrous Fumarate/FA [ Multivitamins] 1 tab PO DAILY 01/14/14 [History] Iron,Carb/Vit C/Vit B12/Folic [Iron 100 Plus Tablet] 1 tab PO DAILY 04/22/18 [History] oxyCODONE HCl/Acetaminophen [Percocet 5-325 mg Tablet] 1 each PO Q6H PRN #12 tablet 08/26/20 [Rx] Referrals: Sarahi Tyler MD [Physician] - 11/06/20 9:45 am - Discharge Summary/Plan Comment DC Time >30 min.: Yes - General Info Date of Service: 09/27/20 Functional Status: Reports: Pain Controlled - Review of Systems General: Reports: No Symptoms HEENT: Reports: No Symptoms Pulmonary: Reports: No Symptoms Cardiovascular: Reports: No Symptoms Gastrointestinal: Reports: No Symptoms Genitourinary: Reports: No Symptoms Musculoskeletal: Reports: No Symptoms Skin: Reports: No Symptoms Neurological: Reports: No Symptoms Psychiatric: Reports: No Symptoms - Patient Data Vitals - Most Recent: Last Vital Signs Temp 36.6 C 09/27/20 11:00 Pulse 73 09/27/20 11:00 Resp 16 09/27/20 11:00 BP 147/97 H 09/27/20 11:00 Pulse Ox 98 09/27/20 11:00 Weight - Most Recent: 86.183 kg Lab Results - Last 24 hrs: Laboratory Results - last 24 hr 09/27/20 Range/Units 05:23 Hgb 9.4 L (12.0-16.0) g/dL Hct 28.8 L (36.0-46.0) % Med Orders - Current: Current Medications Acetaminophen (Acetaminophen 500 Mg Tab) 500 mg PO Q4H PRN PRN Reason: Pain Acetaminophen (Acetaminophen 500 Mg Tab) 1,000 mg PO Q4H PRN PRN Reason: Pain Benzocaine/Menthol (Benzocaine/Menthol 20%-0.5% [place] 78 Gm Cannister) 78 gm TOP ASDIRECTED PRN PRN Reason: Perineal Comfort Measure Bisacodyl (Bisacodyl 10 Mg Supp) 10 mg RECTAL ONETIME PRN PRN Reason: Constipation Butorphanol Tartrate (Butorphanol 1 Mg/Ml Sdv) 1 mg IVPUSH Q1H PRN PRN Reason: Pain Carboprost Tromethamine (Carboprost Tromethamine 250 Mcg/1 Ml Amp) 250 mcg IM ASDIRECTED PRN PRN Reason: Post Hemorrhage Docusate Sodium (Docusate Sodium 100 Mg Cap) 100 mg PO BID PRN PRN Reason: Constipation Emollient Ointment (Lanolin 100% Cream 7 Gm Tube) 0 gm TOP ASDIRECTED PRN PRN Reason: Sore Nipples Oxytocin/Sodium Chloride (Oxytocin 30 Unit/500 Ml-Ns) 30 unit in 500 mls @ 500 mls/hr IV TITRATE YEVGENIY Tranexamic Acid 1,000 mg/ (Sodium Chloride) 110 mls @ 660 mls/hr IV ONETIME PRN PRN Reason: Bleeding Lactated Ringer's (Ringers, Lactated) 1,000 mls @ 150 mls/hr IV ASDIRECTED YEVGENIY Last Admin: 09/25/20 20:19 Dose: 150 mls/hr Documented by: Oxytocin/Sodium Chloride (Oxytocin 30 Unit/500 Ml-Ns) 30 unit in 500 mls @ 2 mls/hr IV TITRATE YEVGENIY; Protocol Last Titration: 09/25/20 20:45 Dose: 4 munits/min, 4 mls/hr Documented by: Ibuprofen (Ibuprofen 400 Mg Tab) 400 mg PO Q4H PRN PRN Reason: Pain Ibuprofen (Ibuprofen 800 Mg Tab) 800 mg PO Q6H PRN PRN Reason: Pain Last Admin: 09/26/20 23:35 Dose: 800 mg Documented by: Lidocaine HCl (Lidocaine 1% 50 Ml Mdv) 50 ml INJECT ONETIME PRN PRN Reason: Laceration repair Methylergonovine Maleate (Methylergonovine 0.2 Mg/1 Ml Amp) 0.2 mg IM ASDIREC PARK PRN PRN Reason: Post Hemorrhage Misoprostol (Misoprostol 200 Mcg Tab) 200 mcg PO ONETIME PRN PRN Reason: Post Hemorrhage Nalbuphine HCl (Nalbuphine 10 Mg/1 Ml Vial) 10 mg IVPUSH Q1H PRN PRN Reason: Pain (severe 7-10) Ondansetron HCl (Ondansetron 4 Mg/2 Ml Sdv) 4 mg IVPUSH Q4H PRN PRN Reason: Nausea/Vomiting Last Admin: 09/25/20 11:02 Dose: 4 mg Documented by: Polysaccharide Iron Complex (Iron Polysaccharides Complex 150 Mg Cap) 150 mg PO DAILY YEVGENIY Last Admin: 09/27/20 10:00 Dose: 150 mg Documented by: Sodium Chloride (Sodium Chloride 0.9% 10 Ml Syringe) 10 ml FLUSH ASDIRECTED PRN PRN Reason: Keep Vein Open Sodium Chloride (Sodium Chloride 0.9% 2.5 Ml Syringe) 2.5 ml FLUSH ASDIRECTED PRN PRN Reason: Keep Vein Open Sodium Chloride (Sodium Chloride 0.9% 10 Ml Sdv) 10 ml IV ASDIRECTED PRN PRN Reason: IV Use Sterile Water (Water For Irrigation,Sterile 1,000 Ml Container) 1,000 ml IRR ASDIRECTED PRN PRN Reason: delivery Terbutaline Sulfate (Terbutaline 1 Mg/Ml Sdv) 0.25 mg SUBCUT ASDIRECTED PRN PRN Reason: Tacysystole Witch Paula (Witch Paula Medicated Pads 40/Jar) 1 pad TOP ASDIRECTED PRN PRN Reason: comfort care Discontinued Medications Acetaminophen (Acetaminophen 500 Mg Tab) 1,000 mg PO ONETIME ONE Stop: 09/24/20 18:36 Last Admin: 09/24/20 18:47 Dose: 1,000 mg Documented by: Fentanyl (Fentanyl 100 Mcg/2 Ml Sdv) Confirm Administered Dose 100 mcg .ROUTE .STK-MED ONE Stop: 09/25/20 15:45 Last Admin: 09/25/20 19:37 Dose: Not Given Documented by: Fentanyl (Fentanyl 100 Mcg/2 Ml Sdv) Confirm Administered Dose 100 mcg .ROUTE .STK-MED ONE Stop: 09/25/20 20:13 Ropivacaine (Naropin 0.2%) Confirm Administered Dose 100 mls @ as directed .ROUTE .STK-MED ONE Stop: 09/25/20 15:45 Last Admin: 09/25/20 19:37 Dose: Not Given Documented by: Ropivacaine (Naropin 0.2%) Confirm Administered Dose 100 mls @ as directed .ROUTE .STK-MED ONE Stop: 09/25/20 20:13 Lidocaine/Epinephrine (Lidocaine 2% With Epinephrine 1:200,000 20 Ml Sdv) Confirm Administered Dose 20 ml .ROUTE .STK-MED ONE Stop: 09/25/20 09:14 Last Admin: 09/25/20 19:37 Dose: Not Given Documented by: Misoprostol (Misoprostol 50 Mcg (1/2 Of 100 Mcg) Tab) 50 mcg PO ONETIME ONE Stop: 09/24/20 16:30 Last Admin: 09/24/20 16:50 Dose: 50 mcg Documented by: Misoprostol (Misoprostol 50 Mcg (1/2 Of 100 Mcg) Tab) 50 mcg PO ONETIME ONE Stop: 09/24/20 23:30 Last Admin: 09/25/20 00:04 Dose: 50 mcg Documented by: Misoprostol (Misoprostol 50 Mcg (1/2 Of 100 Mcg) Tab) 50 mcg PO ONETIME ONE Stop: 09/25/20 16:30 Last Admin: 09/25/20 16:48 Dose: 50 mcg Documented by: - Exam General: Reports: Alert, Oriented HEENT: Reports: Pupils Equal, Pupils Reactive, EOMI, Mucous Membr. Moist/[place] Neck: Reports: Supple Lungs: Reports: Clear to Auscultation, Normal Respiratory Effort Cardiovascular: Reports: Regular Rate, Regular Rhythm GI/Abdominal Exam: Normal Bowel Sounds, Soft, Non-Tender, No Organomegaly, No Distention, No Abnormal Bruit, No Mass, Pelvis Stable (Female) Exam: Normal External Exam, Normal Speculum Exam, Normal Bimanual Exam Rectal (Female) Exam: Normal Exam, Normal Rectal Tone Back Exam: Reports: Normal Inspection, Full Range of Motion Extremities: Normal Inspection, Normal Range of Motion, Non-Tender, No Pedal Edema, Normal Capillary Refill Skin: Reports: Warm, Dry, Intact Wound/Incisions: Reports: Healing Well Neurological: Reports: No New Focal Deficit Psy/Mental Status: Reports: Alert, Normal Affect, Normal Mood
== END 2020-09-27 15:01 | disposition home or self-care (01) | DRG 560 ==
LOC: MW.OBCHECK 14:44 → MW.OB 16:13 → OBSVTOIN 09-26 04:02 → MW.OB 09-26 18:50
PROVIDERS: ADMIT Obstetrics & Gynecology; ATTEND Obstetrics & Gynecology
PROC: 10E0XZZ Delivery of Products of Conception, External Approach (ICD-10-PCS; principal; 2020-09-26)
PROC: 10907ZC Drainage of Amniotic Fluid, Therapeutic from Products of Conception, Via Natural or Artificial Opening (ICD-10-PCS; 2020-09-26)
PROC: 3E0P7VZ Introduction of Hormone into Female Reproductive, Via Natural or Artificial Opening (ICD-10-PCS; 2020-09-26)
PROC: 3E0R3BZ Introduction of Anesthetic Agent into Spinal Canal, Percutaneous Approach (ICD-10-PCS; 2020-09-26)
PROC: 10S0XZZ Reposition Products of Conception, External Approach (ICD-10-PCS; 2020-09-26)
PROC: 00HU33Z Insertion of Infusion Device into Spinal Canal, Percutaneous Approach (ICD-10-PCS; 2020-09-26)
DX: O32.1XX0 Maternal care for breech presentation, not applicable or unspecified (principal); Z3A.39 39 weeks gestation of pregnancy; Z37.0 Single live birth; O76 Abnormality in fetal heart rate and rhythm complicating labor and delivery; Z20.822 Contact with and (suspected) exposure to COVID-19
CPT/HCPCS: 01958; 36415; 51702; 59409; 59412; 76815; 76815-26; 82803; 85014; 85018; 85027; 86592; 86850; 86900; 86901; A9270-GY; J2405; J2590; J2795; J3010; J7120; U0002

== ENCOUNTER 2020-10-06 03:52 | Inpatient (IN) | payer BC, OTHER ==
--- NOTE | 2020-10-06 03:54 | EDM.PDOC ---
ED HPI GENERAL MEDICAL PROBLEM - General Stated Complaint: HEADACHE Time Seen by Provider: 10/06/20 03:53 Source of Information: Reports: Patient History Limitations: Reports: No Limitations - History of Present Illness INITIAL COMMENTS - FREE TEXT/NARRATIVE: 30-year-old female with history of preeclampsia status post vaginal delivery [address] Wagner presents with headache. Headache started yesterday morning around 3:00 in the morning, localized to the right frontal region described as throbbing sensation that is severe, rated 10/10 currently. She took Percocet with no relief. She denies fever, chills, nausea, vomiting, blurry vision. ROS: A 10-point review of systems, other than pertinent positives and negatives as stated per HPI, is otherwise negative Past medical history: No additional pertinent history Past Surgical history: No additional pertinent history Social history: No additional pertinent history Family history: No additional pertinent history PHYSICAL EXAM General: AOx4, GCS = 15, moderate distress HEENT: dry mucous membrane Neck: supple, no meningismus, no Kernig or Brudzinski Cardiac: S1S2 RRR Respiratory: CTAB, no crackles or rales, no wheezing Abdomen: Soft, nontender, no rebound or guarding, nondistended, no pulsatile mass. Back: nontender Musculoskeletal: NVI distally, no deformity Neuro: No focal deficits, normal gait. R headache Pain Score (Numeric/FACES): 10 - Related Data Allergies Allergy/AdvReac Type Severity Reaction Status Date / Time No Known Allergies Allergy Verified 10/06/20 04:01 Home Meds: Home Meds Non-Formulary Medication [NF Drug] 10/06/20 [History] Past Medical History - Past Health History Medical/Surgical History: Denies Medical/Surgical History HEENT History: Reports: None Cardiovascular History: Reports: None, Hypertension Respiratory History: Reports: None Gastrointestinal History: Reports: None Genitourinary History: Reports: None MUFFLER HAND History: Reports: Musculoskeletal History: Reports: None Neurological History: Reports: None Psychiatric History: Reports: None Endocrine/Metabolic History: Reports: None Hematologic History: Reports: None Oncologic (Cancer) History: Reports: None Dermatologic History: Reports: None - Infectious Disease History Infectious Disease History: Reports: Chicken Pox Social & Family History - Family History Family Medical History: No Pertinent Family History - Caffeine Use Caffeine Use: Reports: Coffee, Tea Caffeine Use Comment: once in awhile in small amounts ED ROS GENERAL - Review of Systems Review Of Systems: See Below (see dictation) ED EXAM, GENERAL - Physical Exam Exam: See Below (see dictation) Course - Vital Signs Last Recorded V/S: Last Vital Signs Temp 97.9 F 10/06/20 04:04 Pulse 75 10/06/20 06:10 Resp 16 10/06/20 06:10 BP 168/97 H 10/06/20 06:10 Pulse Ox 97 10/06/20 06:10 - Orders/Labs/Meds Orders: Active Orders 24 hr Category Date Time Status Patient Status [ADT] Routine ADT 10/06/20 06:24 Ordered Labs: Laboratory Tests 10/06/20 10/06/20 10/06/20 Range/Units 04:20 04:25 04:25 WBC 5.94 (4.0-11.0) K/uL RBC 6.00 H (4.30-5.90) M/uL Hgb 11.8 L (12.0-16.0) g/dL Hct 36.5 (36.0-46.0) % MCV 60.8 L (80.0-98.0) fL MCH 19.7 L (27.0-32.0) pg MCHC 32.3 (31.0-37.0) g/dL RDW Std Deviation 44.7 (28.0-62.0) fl RDW Coeff of Marvel 21 H (11.0-15.0) % Plt Count 487 H (150-400) K/uL MPV 9.30 (7.40-12.00) fL Neut % (Auto) 40.6 L (48.0-80.0) % Lymph % (Auto) 50.7 H (16.0-40.0) % [place] % (Auto) 6.2 (0.0-15.0) % Eos % (Auto) 2.2 (0.0-7.0) % Baso % (Auto) 0.3 (0.0-1.5) % Neut # (Auto) 2.4 (1.4-5.7) K/uL Lymph # (Auto) 3.0 H (0.6-2.4) K/uL [place] # (Auto) 0.4 (0.0-0.8) K/uL Eos # (Auto) 0.1 (0.0-0.7) K/uL Baso # (Auto) 0.0 (0.0-0.1) K/uL Nucleated RBC % 0.0 /100WBC Nucleated RBCs # 0 K/uL INR 1.00 Sodium (136-145) mmol/L Potassium (3.5-5.1) mmol/L Chloride (98-107) mmol/L Carbon Dioxide (21.0-32.0) mmol/L BUN (7.0-18.0) mg/dL Creatinine (0.6-1.0) mg/dL Est Cr Clr Drug Dosing mL/min Estimated GFR (MDRD) ml/min Glucose (74-106) mg/dL Calcium (8.5-10.1) mg/dL Total Bilirubin (0.2-1.0) mg/dL AST (15-37) IU/L ALT (14-63) IU/L Alkaline Phosphatase (46-116) U/L Total Protein (6.4-8.2) g/dL Albumin (3.4-5.0) g/dL Globulin (2.6-4.0) g/dL Albumin/Globulin Ratio (0.9-1.6) Urine Color Urine Appearance Urine pH (5.0-8.0) Ur Specific [place] (1.001-1.035) Urine Protein (NEGATIVE) mg/dL Urine Glucose (UA) (NEGATIVE) mg/dL Urine Ketones (NEGATIVE) mg/dL Urine Occult Blood (NEGATIVE) Urine Nitrite (NEGATIVE) Urine Bilirubin (NEGATIVE) Urine Urobilinogen (<2.0) EU/dL Ur Leukocyte Esterase (NEGATIVE) Urine RBC (0-2/HPF) Urine WBC (0-5/HPF) Ur Epithelial Cells (NONE-FEW) Urine Bacteria (NEGATIVE) U Random Total Protein (<11.9) mg/dL SARS-CoV-2 RNA (NAE) NEGATIVE (NEGATIVE) 10/06/20 10/06/20 10/06/20 Range/Units 04:25 05:44 05:44 WBC (4.0-11.0) K/uL RBC (4.30-5.90) M/uL Hgb (12.0-16.0) g/dL Hct (36.0-46.0) % MCV (80.0-98.0) fL MCH (27.0-32.0) pg MCHC (31.0-37.0) g/dL RDW Std Deviation (28.0-62.0) fl RDW Coeff of Marvel (11.0-15.0) % Plt Count (150-400) K/uL MPV (7.40-12.00) fL Neut % (Auto) (48.0-80.0) % Lymph % (Auto) (16.0-40.0) % [place] % (Auto) (0.0-15.0) % Eos % (Auto) (0.0-7.0) % Baso % (Auto) (0.0-1.5) % Neut # (Auto) (1.4-5.7) K/uL Lymph # (Auto) (0.6-2.4) K/uL [place] # (Auto) (0.0-0.8) K/uL Eos # (Auto) (0.0-0.7) K/uL Baso # (Auto) (0.0-0.1) K/uL Nucleated RBC % /100WBC Nucleated RBCs # K/uL INR Sodium 138 (136-145) mmol/L Potassium 4.1 (3.5-5.1) mmol/L Chloride 104 (98-107) mmol/L Carbon Dioxide 26.4 (21.0-32.0) mmol/L BUN 15 (7.0-18.0) mg/dL Creatinine 0.8 (0.6-1.0) mg/dL Est Cr Clr Drug Dosing 96.26 mL/min Estimated GFR (MDRD) > 60.0 ml/min Glucose 103 (74-106) mg/dL Calcium 8.7 (8.5-10.1) mg/dL Total Bilirubin 0.2 (0.2-1.0) mg/dL AST 4 L (15-37) IU/L ALT 16 (14-63) IU/L Alkaline Phosphatase 225 H (46-116) U/L Total Protein 7.0 (6.4-8.2) g/dL Albumin 2.4 L (3.4-5.0) g/dL Globulin 4.6 H (2.6-4.0) g/dL Albumin/Globulin Ratio 0.5 L (0.9-1.6) Urine Color YELLOW Urine Appearance CLEAR Urine pH 7.0 (5.0-8.0) Ur Specific [place] 1.020 (1.001-1.035) Urine Protein 100 H (NEGATIVE) mg/dL Urine Glucose (UA) NEGATIVE (NEGATIVE) mg/dL Urine Ketones NEGATIVE (NEGATIVE) mg/dL Urine Occult Blood NEGATIVE (NEGATIVE) Urine Nitrite NEGATIVE (NEGATIVE) Urine Bilirubin NEGATIVE (NEGATIVE) Urine Urobilinogen 0.2 (<2.0) EU/dL Ur Leukocyte Esterase TRACE H (NEGATIVE) Urine RBC 0-2 (0-2/HPF) Urine WBC 4-7 (0-5/HPF) Ur Epithelial Cells MODERATE (NONE-FEW) Urine Bacteria RARE (NEGATIVE) U Random Total Protein 96.4 H (<11.9) mg/dL SARS-CoV-2 RNA (NAE) (NEGATIVE) Meds: Medications Discontinued Medications Generic Name Dose Route Start Last Admin Trade Name Freq PRN Reason Stop Dose Admin Diphenhydramine HCl 50 mg 10/06/20 05:00 10/06/20 05:06 Diphenhydramine 50 Mg/Ml Sdv IVPUSH 10/06/20 05:01 50 mg ONETIME ONE Administration Sodium Chloride 1,000 mls @ 999 mls/hr 10/06/20 04:45 Normal Saline IV .BOLUS YEVGENIY Sodium Chloride 1,000 mls @ 999 mls/hr 10/06/20 05:05 10/06/20 05:06 Normal Saline IV 10/06/20 06:05 999 mls/hr NOW STA Administration Labetalol HCl 10 mg 10/06/20 05:39 10/06/20 05:51 Labetalol 100 Mg/20 Ml Mdv IVPUSH 10/06/20 05:40 10 mg ONETIME ONE Administration Protocol Metoclopramide HCl 10 mg 10/06/20 05:00 10/06/20 05:07 Metoclopramide 10 Mg/2 Ml Sdv IVPUSH 10/06/20 05:01 10 mg ONETIME ONE Administration - Re-Assessments/Exams Free Text/Narrative Re-Assessment/Exam: 10/06/20 05:34 Headache improved to 6/10 after IV fluids, Reglan and Benadryl. Ordered 10 mg IV labetalol for hypertension. 10/06/20 05:[address] Wagner, she recommends calling her back once urine protein results return, for final disposition. 10/06/20 06:[address] Wagner, she agrees to admit patient. Her documentation s upersedes all other documentation on this patient with regard to any conflicts or discrepancies from this point forward. Any emergency conditions have been treated to the ability of the ED prior to admission. MEDICAL DECISION MAKING: I reviewed the patients past medical records, lab and radiographic findings. I discussed the case with the patient. My differential diagnosis included: Preeclampsia, ICH, CVA. Departure - Departure Time of Disposition: 06:30 Disposition: Refer to Observation Condition: Serious Clinical Impression: Preeclampsia, Hypertension, Proteinuria - Discharge Information *PRESCRIPTION DRUG MONITORING PROGRAM REVIEWED*: Not Applicable *COPY OF PRESCRIPTION DRUG MONITORING REPORT IN PATIENT GHANSHYAM: Not Applicable Referrals: Johann Hernandez MD [Primary Care Provider] - Critical Care Note - Critical Care Note Total Time (mins): 40 Comments: CRITCAL CARE: The high probability of sudden, clinically significant deterioration in the patient's condition required the highest level of my preparedness to intervene urgently. The services I provided to this patient were to treat and/or prevent clinically significant deterioration. Services included the following: chart data review, reviewing nursing notes and/or old charts, documentation time, project management consultant collaboration regarding findings and treatment options, medication orders and management, direct patient care, vital sign assessments and ordering, interpreting and reviewing diagnostic studies/lab tests. Aggregate critical care time includes only time during which I was engaged in work directly related to the patient's care, as described above, whether at the bedside or elsewhere in the Emergency Department. It did not include time spent performing other reported procedures or the services of residents, students, nurses or physician assistants. Frequent interventions and/or frequent repeat evaluations were required as well as counseling and coordination of care regarding prognosis, treatments, and discussions with patient, staff and consultants. Critical Care (excluding other procedures): 40 minutes Sepsis Event Note (ED) - Focused Exam Vital Signs: Vital Signs Temp Pulse Resp BP Pulse Ox 10/06/20 06:10 75 16 168/97 H 97 10/06/20 05:00 60 18 179/99 H 98 10/06/20 04:04 97.9 F 68 18 171/109 H 99 - My Orders Last 24 Hours: My Active Orders 10/06/20 06:24 Patient Status [ADT] Routine - Assessment/Plan Last 24 Hours: My Active Orders 10/06/20 06:24 Patient Status [ADT] Routine
[2020-10-06] MEDS ORDERED: Sodium Chloride 0.9% 1,000 ML IV SCH ×2 (04:45→07:30)
[2020-10-06 04:46] LABS: BLOOD UREA NITROGEN,BUN 15 mg/dL (7.0-18.0); CARBON DIOXIDE,CO2 26.4 mmol/L (21.0-32.0); CHLORIDE,CL 104 mmol/L (98-107); GLUCOSE RANDOM 103 mg/dL (74-106); POTASSIUM,K 4.1 mmol/L (3.5-5.1); SODIUM,NA 138 mmol/L (136-145)
[2020-10-06] MEDS ORDERED: Metoclopramide 10 MG/2 ML SDV IVPUSH ONE (05:00)
[2020-10-06] MEDS ORDERED: diphenhydrAMINE 50 MG/ML SDV IVPUSH ONE (05:00)
[2020-10-06] MEDS ORDERED: Sodium Chloride 0.9% 1,000 ML IV STA (05:05)
--- NOTE | 2020-10-06 05:34 | CT ---
INDICATION: Headache, 11 days status post vaginal delivery. TECHNIQUE: CT head without contrast. COMPARISON: None. FINDINGS: CSF spaces: Within normal limits for age. Brain parenchyma: The muniz-white differentiation is normal. No sign of mass, hemorrhage, or midline shift. Skull base and calvarium: Mucous retention cyst left maxillary sinus. The visualized orbits are grossly unremarkable. No skull fractures. IMPRESSION: Unremarkable noncontrast head CT. Please note that all CT scans at this facility use dose modulation, iterative reconstruction, and/or weight-based dosing when appropriate to reduce radiation dose to as low as reasonably achievable. Dictated by Vahe Mueller MD @ Oct 06 2020 5:29AM Signed by Dr. Vahe Mueller @ Oct 06 2020 5:32AM
[2020-10-06] MEDS ORDERED: Labetalol 100 MG/20 ML MDV IVPUSH ONE ×2 (05:39→10:15)
[2020-10-06] MEDS ORDERED: Magnesium Sulfate/Water 4 GM in Premix Bag 1 BAG IV ONE (07:28)
[2020-10-06] MEDS ORDERED: Magnesium Sulfate/Water 2 GM in Premix Bag 1 BAG IV ONE (07:28)
[2020-10-06] MEDS ORDERED: Labetalol 100 MG/20 ML MDV IVPUSH PRN (07:28)
[2020-10-06] MEDS ORDERED: Sodium Chloride 0.9% 2.5 ML Syringe FLUSH PRN (07:28)
[2020-10-06] MEDS ORDERED: Sodium Chloride 0.9% 10 ML SDV IV PRN (07:28)
[2020-10-06] MEDS ORDERED: Sodium Chloride 0.9% 10 ML Syringe FLUSH PRN (07:28)
[2020-10-06] MEDS ORDERED: Calcium Gluconate 10% 1 GM/10 ML SDV IVPUSH PRN (07:28)
[2020-10-06] MEDS ORDERED: Acetaminophen 500 MG Tab PO ONE ×3 (07:51→22:18)
[2020-10-06] MEDS: Magnesium Sulfate/Water 20 GM/500 ML BAG IV SCH ×2 (09:05→18:38)
[2020-10-06] MEDS ORDERED: NIFEdipine 10 MG Cap PO ONE (11:17)
--- NOTE | 2020-10-06 12:46 | PCM.LDHP ---
L&D History of Present Illness - General Date of Service: 10/06/20 Admit Problem/Dx: Patient Status Order with Admit Dx/Problem 10/06/20 06:24 Patient Status [ADT] Routine 10/06/20 07:28 Patient Status [ADT] Routine Admission Diagnosis/Problem Admission Diagnosis/Problem Preeclampsia in period Source of Information: Patient, Other (ER physician) - History of Present Illness Introduction:: 30yo G4 now P3105 s/p @ 38w2d complicated by cord prolapse, which was reduced. care was c/b h/o preeclampsia in all her prior pregnancies. Throughout labor and course patient BPs remained wnl. 3 days ago at the 1-week PP visit, patient was found to have elevated BP and started on Nifedipine 30mg XL Patient started the treatment on Wednesday, but Wednesday woke up with severe frontal REILLY and skip the medications. She came to the ER at 3am on Wednesday, due to the REILLY, unresponsive to percocet. Denies visual changes, abdominal pain, swelling, nausea or vomiting. In the ER, her blood work-up was remarkable for urine Pr/Cr of 5. BPs were in the 170's/100's. She was given benadryl and phenergan for the REILLY. Pain Score: 3 - Related Data Allergies/Adverse Reactions: Allergies Allergy/AdvReac Type Severity Reaction Status Date / Time No Known Allergies Allergy Verified 10/06/20 04:01 Home Medications: Home Meds Non-Formulary Medication [NF Drug] 10/06/20 [History] Past Medical History - Past Health History Medical/Surgical History: Denies Medical/Surgical History HEENT History: Reports: None Cardiovascular History: Reports: None, Hypertension Respiratory History: Reports: None Gastrointestinal History: Reports: None Genitourinary History: Reports: None ART PREPARATOR History: Reports: Musculoskeletal History: Reports: None Neurological History: Reports: None Psychiatric History: Reports: None Endocrine/Metabolic History: Reports: None Hematologic History: Reports: None Oncologic (Cancer) History: Reports: None Dermatologic History: Reports: None - Infectious Disease History Infectious Disease History: Reports: Chicken Pox Social & Family History - Family History Family Medical History: No Pertinent Family History - Caffeine Use Caffeine Use: Reports: None Caffeine Use Comment: once in awhile in small amounts - Recreational Drug Use Recreational Drug Use: No H&P Review of Systems - Review of Systems: Review Of Systems: See Below Free Text/Narrative: A complete review of systems revealed no pertinent patient complaints except as noted below and in the history of present illness. L&D Exam - Exam Exam: See Below - Vital Signs Vital Signs: Last Vital Signs Temp 98.2 F 10/06/20 10:35 Pulse 80 10/06/20 11:37 Resp 16 10/06/20 11:45 BP 161/99 H 10/06/20 11:46 Pulse Ox 96 10/06/20 11:45 Weight: 87.09 kg - Exam General: Alert, Oriented Lungs: Normal Respiratory Effort Cardiovascular: Regular Rate GI/Abdominal Exam: Soft, Non-Tender Extremities: Normal Inspection, No Pedal Edema Psychiatric: Alert, Normal Affect, Normal Mood - Patient Data Lab Results Last 24 hrs: Laboratory Results - last 24 hr 10/06/20 10/06/20 10/06/20 Range/Units 04:20 04:25 04:25 WBC 5.94 (4.0-11.0) K/uL RBC 6.00 H (4.30-5.90) M/uL Hgb 11.8 L (12.0-16.0) g/dL Hct 36.5 (36.0-46.0) % MCV 60.8 L (80.0-98.0) fL MCH 19.7 L (27.0-32.0) pg MCHC 32.3 (31.0-37.0) g/dL RDW Std Deviation 44.7 (28.0-62.0) fl RDW Coeff of Marvel 21 H (11.0-15.0) % Plt Count 487 H (150-400) K/uL MPV 9.30 (7.40-12.00) fL Neut % (Auto) 40.6 L (48.0-80.0) % Lymph % (Auto) 50.7 H (16.0-40.0) % [place] % (Auto) 6.2 (0.0-15.0) % Eos % (Auto) 2.2 (0.0-7.0) % Baso % (Auto) 0.3 (0.0-1.5) % Neut # (Auto) 2.4 (1.4-5.7) K/uL Lymph # (Auto) 3.0 H (0.6-2.4) K/uL [place] # (Auto) 0.4 (0.0-0.8) K/uL Eos # (Auto) 0.1 (0.0-0.7) K/uL Baso # (Auto) 0.0 (0.0-0.1) K/uL Nucleated RBC % 0.0 /100WBC Nucleated RBCs # 0 K/uL INR 1.00 Sodium (136-145) mmol/L Potassium (3.5-5.1) mmol/L Chloride (98-107) mmol/L Carbon Dioxide (21.0-32.0) mmol/L BUN (7.0-18.0) mg/dL Creatinine (0.6-1.0) mg/dL Est Cr Clr Drug Dosing mL/min Estimated GFR (MDRD) ml/min Glucose (74-106) mg/dL Calcium (8.5-10.1) mg/dL Phosphorus (2.6-4.7) mg/dL Magnesium (1.8-2.4) mg/dL Total Bilirubin (0.2-1.0) mg/dL AST (15-37) IU/L ALT (14-63) IU/L Alkaline Phosphatase (46-116) U/L Total Protein (6.4-8.2) g/dL Albumin (3.4-5.0) g/dL Globulin (2.6-4.0) g/dL Albumin/Globulin Ratio (0.9-1.6) Urine Color Urine Appearance Urine pH (5.0-8.0) Ur Specific [place] (1.001-1.035) Urine Protein (NEGATIVE) mg/dL Urine Glucose (UA) (NEGATIVE) mg/dL Urine Ketones (NEGATIVE) mg/dL Urine Occult Blood (NEGATIVE) Urine Nitrite (NEGATIVE) Urine Bilirubin (NEGATIVE) Urine Urobilinogen (<2.0) EU/dL Ur Leukocyte Esterase (NEGATIVE) Urine RBC (0-2/HPF) Urine WBC (0-5/HPF) Ur Epithelial Cells (NONE-FEW) Urine Bacteria (NEGATIVE) Ur Random Creatinine mg/dL U Random Total Protein (<11.9) mg/dL Protein/Creatinin Ratio SARS-CoV-2 RNA (NAE) NEGATIVE (NEGATIVE) 10/06/20 10/06/2010/06/21 Range/Units 04:25 04:25 04:25 WBC (4.0-11.0) K/uL RBC (4.30-5.90) M/uL Hgb (12.0-16.0) g/dL Hct (36.0-46.0) % MCV (80.0-98.0) fL MCH (27.0-32.0) pg MCHC (31.0-37.0) g/dL RDW Std Deviation (28.0-62.0) fl RDW Coeff of Marvel (11.0-15.0) % Plt Count (150-400) K/uL MPV (7.40-12.00) fL Neut % (Auto) (48.0-80.0) % Lymph % (Auto) (16.0-40.0) % [place] % (Auto) (0.0-15.0) % Eos % (Auto) (0.0-7.0) % Baso % (Auto) (0.0-1.5) % Neut # (Auto) (1.4-5.7) K/uL Lymph # (Auto) (0.6-2.4) K/uL [place] # (Auto) (0.0-0.8) K/uL Eos # (Auto) (0.0-0.7) K/uL Baso # (Auto) (0.0-0.1) K/uL Nucleated RBC % /100WBC Nucleated RBCs # K/uL INR Sodium 138 (136-145) mmol/L Potassium 4.1 (3.5-5.1) mmol/L Chloride 104 (98-107) mmol/L Carbon Dioxide 26.4 (21.0-32.0) mmol/L BUN 15 (7.0-18.0) mg/dL Creatinine 0.8 (0.6-1.0) mg/dL Est Cr Clr Drug Dosing 96.26 mL/min Estimated GFR (MDRD) > 60.0 ml/min Glucose 103 (74-106) mg/dL Calcium 8.7 (8.5-10.1) mg/dL Phosphorus 4.4 (2.6-4.7) mg/dL Magnesium 2.0 (1.8-2.4) mg/dL Total Bilirubin 0.2 (0.2-1.0) mg/dL AST 4 L (15-37) IU/L ALT 16 (14-63) IU/L Alkaline Phosphatase 225 H (46-116) U/L Total Protein 7.0 (6.4-8.2) g/dL Albumin 2.4 L (3.4-5.0) g/dL Globulin 4.6 H (2.6-4.0) g/dL Albumin/Globulin Ratio 0.5 L (0.9-1.6) Urine Color Urine Appearance Urine pH (5.0-8.0) Ur Specific [place] (1.001-1.035) Urine Protein (NEGATIVE) mg/dL Urine Glucose (UA) (NEGATIVE) mg/dL Urine Ketones (NEGATIVE) mg/dL Urine Occult Blood (NEGATIVE) Urine Nitrite (NEGATIVE) Urine Bilirubin (NEGATIVE) Urine Urobilinogen (<2.0) EU/dL Ur Leukocyte Esterase (NEGATIVE) Urine RBC (0-2/HPF) Urine WBC (0-5/HPF) Ur Epithelial Cells (NONE-FEW) Urine Bacteria (NEGATIVE) Ur Random Creatinine mg/dL U Random Total Protein (<11.9) mg/dL Protein/Creatinin Ratio SARS-CoV-2 RNA (NAE) (NEGATIVE) 10/06/20 10/06/20 10/06/20 Range/Units 05:44 05:44 05:44 WBC (4.0-11.0) K/uL RBC (4.30-5.90) M/uL Hgb (12.0-16.0) g/dL Hct (36.0-46.0) % MCV (80.0-98.0) fL MCH (27.0-32.0) pg MCHC (31.0-37.0) g/dL RDW Std Deviation (28.0-62.0) fl RDW Coeff of Marvel (11.0-15.0) % Plt Count (150-400) K/uL MPV (7.40-12.00) fL Neut % (Auto) (48.0-80.0) % Lymph % (Auto) (16.0-40.0) % [place] % (Auto) (0.0-15.0) % Eos % (Auto) (0.0-7.0) % Baso % (Auto) (0.0-1.5) % Neut # (Auto) (1.4-5.7) K/uL Lymph # (Auto) (0.6-2.4) K/uL [place] # (Auto) (0.0-0.8) K/uL Eos # (Auto) (0.0-0.7) K/uL Baso # (Auto) (0.0-0.1) K/uL Nucleated RBC % /100WBC Nucleated RBCs # K/uL INR Sodium (136-145) mmol/L Potassium (3.5-5.1) mmol/L Chloride (98-107) mmol/L Carbon Dioxide (21.0-32.0) mmol/L BUN (7.0-18.0) mg/dL Creatinine (0.6-1.0) mg/dL Est Cr Clr Drug Dosing mL/min Estimated GFR (MDRD) ml/min Glucose (74-106) mg/dL Calcium (8.5-10.1) mg/dL Phosphorus (2.6-4.7) mg/dL Magnesium (1.8-2.4) mg/dL Total Bilirubin (0.2-1.0) mg/dL AST (15-37) IU/L ALT (14-63) IU/L Alkaline Phosphatase (46-116) U/L Total Protein (6.4-8.2) g/dL Albumin (3.4-5.0) g/dL Globulin (2.6-4.0) g/dL Albumin/Globulin Ratio (0.9-1.6) Urine Color YELLOW Urine Appearance CLEAR Urine pH 7.0 (5.0-8.0) Ur Specific [place] 1.020 (1.001-1.035) Urine Protein 100 H (NEGATIVE) mg/dL Urine Glucose (UA) NEGATIVE (NEGATIVE) mg/dL Urine Ketones NEGATIVE (NEGATIVE) mg/dL Urine Occult Blood NEGATIVE (NEGATIVE) Urine Nitrite NEGATIVE (NEGATIVE) Urine Bilirubin NEGATIVE (NEGATIVE) Urine Urobilinogen 0.2 (<2.0) EU/dL Ur Leukocyte Esterase TRACE H (NEGATIVE) Urine RBC 0-2 (0-2/HPF) Urine WBC 4-7 (0-5/HPF) Ur Epithelial Cells MODERATE (NONE-FEW) Urine Bacteria RARE (NEGATIVE) Ur Random Creatinine 17.9 mg/dL U Random Total Protein 96.4 H 89.1 H (<11.9) mg/dL Protein/Creatinin Ratio 5.0 SARS-CoV-2 RNA (NAE) (NEGATIVE) Result Diagrams: 10/06/20 04:25 10/06/20 04:25 - Problem List (1) Hypertension SNOMED Code(s): 37837980 ICD Code: I10 - ESSENTIAL (PRIMARY) HYPERTENSION Status: Acute Current Visit: Yes (2) Preeclampsia SNOMED Code(s): 935190602 ICD Code: O14.90 - UNSPECIFIED PRE-ECLAMPSIA, UNSPECIFIED TRIMESTER Status: Acute Current Visit: Yes (3) Headache SNOMED Code(s): 00696758 ICD Code: R51 - HEADACHE * DO NOT USE * Status: Acute Current Visit: Yes Onset Date: 01/14/14 Problem List Initiated/Reviewed/Updated: Yes Orders Last 24hrs: Active Orders 24 hr Category Date Time Status Patient Status [ADT] Routine ADT 10/06/20 06:24 Active Patient Status [ADT] Routine ADT 10/06/20 07:28 Active Antiembolic Devices [RC] .Routine Care 10/06/20 07:38 Active Bedrest [RC] ASDIRECTED Care 10/06/20 07:28 Active Communication Order [RC] PRN Care 10/06/20 07:28 Active Communication Order [RC] PRN Care 10/06/20 07:28 Active Equipment to Bedside [RC] PRN Care 10/06/20 07:38 Active Height and Weight [RC] DAILY Care 10/06/20 07:28 Active Intake and Output [RC] QSHIFT Care 10/06/20 07:28 Active Notify Provider Status Change [RC] ASDIRECTED Care 10/06/20 07:39 Active Notify Provider [RC] PRN Care 10/06/20 07:28 Active Oxygen Therapy [RC] PRN Care 10/06/20 07:28 Active Peripheral IV Care [RC] PRN Care 10/06/20 07:28 Active Pulse Oximetry [RC] CONTINUOUS Care 10/06/20 07:36 Active RT Incentive Spirometry [RC] Q1HWA Care 10/06/20 07:38 Active Urinary Catheter Assessment [RC] ASDIRECTED Care 10/06/20 07:28 Active VTE/DVT Education [RC] PER UNIT ROUTINE Care 10/06/20 07:38 Active Vital Signs [RC] ASDIRECTED Care 10/06/20 07:28 Active Fluid Restriction [DIET] Diet 10/06/20 Breakfast Active Calcium Gluconate Med 10/06/20 07:28 Active 1 gm IVPUSH ASDIRECTED PRN Labetalol [Normodyne] Med 10/06/20 07:28 Active 20 mg IVPUSH Q10M PRN Magnesium Sulfate/Water [Magnesium Sulfate in Water 20 Med 10/06/20 07:30 Active GM/500 ML] 20 gm in 500 ml IV ASDIRECTED Sodium Chloride 0.9% [Normal Saline] Med 10/06/20 07:28 Active 10 ml IV ASDIRECTED PRN Sodium Chloride 0.9% [Normal Saline] 1,000 ml Med 10/06/20 07:30 Active IV ASDIRECTED Sodium Chloride 0.9% [Saline Flush] Med 10/06/20 07:28 Active 10 ml FLUSH ASDIRECTED PRN Sodium Chloride 0.9% [Saline Flush] Med 10/06/20 07:28 Active 2.5 ml FLUSH ASDIRECTED PRN DVT/VTE Prophylaxis Reflex [OM.PC] Routine Oth 10/06/20 07:28 Ordered Deep Tendon Reflexes [WOMSER] [address] 10/06/20 07:30 Ordered Deep Tendon Reflexes [WOMSER] [address] 10/06/20 08:30 Ordered Deep Tendon Reflexes [WOMSER] [facility] 10/06/20 09:30 Ordered Deep Tendon Reflexes [WOMSER] [address] 10/06/20 10:30 Ordered Deep Tendon Reflexes [WOMSER] [address] 10/06/20 11:30 Ordered Deep Tendon Reflexes [WOMSER] [address] 10/06/20 12:30 Ordered Deep Tendon Reflexes [WOMSER] [address] 10/06/20 13:30 Ordered Deep Tendon Reflexes [WOMSER] [facility] 10/06/20 14:30 Ordered Deep Tendon Reflexes [WOMSER] [facility] 10/06/20 15:30 Ordered Deep Tendon Reflexes [WOMSER] Q1 Ot 10/06/20 16:30 Ordered Deep Tendon Reflexes [WOMSER] [facility] 10/06/20 17:30 Ordered Deep Tendon Reflexes [WOMSER] Q1 Ot 10/06/20 18:30 Ordered Deep Tendon Reflexes [WOMSER] [facility] 10/06/20 19:30 Ordered Deep Tendon Reflexes [WOMSER] [address] 10/06/20 20:30 Ordered Deep Tendon Reflexes [WOMSER] [address] 10/06/20 21:30 Ordered Deep Tendon Reflexes [WOMSER] [address] 10/06/20 22:30 Ordered Deep Tendon Reflexes [WOMSER] [address] 10/06/20 23:30 Ordered Deep Tendon Reflexes [WOMSER] [address] 10/07/20 00:30 Ordered Deep Tendon Reflexes [WOMSER] [address] 10/07/20 01:30 Ordered Deep Tendon Reflexes [WOMSER] [address] 10/07/20 02:30 Ordered Deep Tendon Reflexes [WOMSER] [address] 10/07/20 03:30 Ordered Deep Tendon Reflexes [WOMSER] [address] 10/07/20 04:30 Ordered Deep Tendon Reflexes [WOMSER] [address] 10/07/20 05:30 Ordered Deep Tendon Reflexes [WOMSER] [address] 10/07/20 06:30 Ordered Peripheral IV Insertion Adult [OM.PC] Routine [facility] 10/06/20 07:28 Ordered Medication Orders Calcium Gluconate (Calcium Gluconate 10% 1 Gm/10 Ml Sdv) 1 gm IVPUSH ASDIRECTED PRN PRN Reason: respiratory distress Magnesium Sulfate (Magnesium Sulfate In Water 20 Gm/500 Ml) 20 gm in 500 mls @ 50 mls/hr IV ASDIRECTED [facility] Last Admin: 10/06/20 09:05 Dose: 2 gm/hr, 50 mls/hr Documented by: TREE Sodium Chloride (Normal Saline) 1,000 mls @ 10 mls/hr IV ASDIRECTED YEVGENIY Last Admin: 10/06/20 08:22 Dose: 10 mls/hr Documented by: TREE Labetalol HCl (Labetalol 100 Mg/20 Ml Mdv) 20 mg IVPUSH Q10M PRN; Protocol PRN Reason: Hypertension Last Admin: 10/06/20 09:40 Dose: 20 mg Documented by: TREE Sodium Chloride (Sodium Chloride 0.9% 10 Ml Syringe) 10 ml FLUSH ASDIRECTED PRN PRN Reason: Keep Vein Open Sodium Chloride (Sodium Chloride 0.9% 2.5 Ml Syringe) 2.5 ml FLUSH ASDIRECTED PRN PRN Reason: Keep Vein Open Sodium Chloride (Sodium Chloride 0.9% 10 Ml Sdv) 10 ml IV ASDIRECTED PRN PRN Reason: IV Use Assessment/Plan Comment:: 30yo G4 now P3105 s/p @ 38w2d here with REILLY resistent to percocet, as well as proteinuria. Patient with a h/o pre-eclampsia in her past pregnancies. Working diagnosis include severe HTN vs pre-eclampsia with severe features. Discussed risks and benefits of observation vs treatment, as patient has express ed her desire to leave. Patient agreeable to treatment. Will start Mag with loading dose and maintenance dose. Will treat BPs >160/110 then restart patient on Nifedipine XL.
[2020-10-06] MEDS: NIFEdipine 30 MG Tab.ER PO SCH (15:40)
[2020-10-07] MEDS ORDERED: Acetaminophen 500 MG Tab ONE (03:16)
[2020-10-07] MEDS: Magnesium Sulfate/Water 20 GM/500 ML BAG IV SCH (05:05)
[2020-10-07 07:06] VITALS: PULSE 85
[2020-10-07] MEDS: NIFEdipine 30 MG Tab.ER PO SCH (08:01)
--- NOTE | 2020-10-07 10:27 | PCM.DCSUM1 ---
Discharge Summary - Hospital Course Free Text/Narrative:: 30yo G4 now P3105 s/p ~10 days ago, complicated by cord prolapse, which was reduced. care was c/b h/o preeclampsia in all her prior pregnancies. Throughout labor and course patient BPs remained wnl. 3 days ago at the 1-week PP visit, patient was found to have elevated BP and started on Nifedipine 30mg XL Patient started the treatment on Wednesday, but Wednesday woke up with severe frontal REILLY and skip the medications. She came to the ER at 3am on Wednesday, due to the REILLY, unresponsive to percocet. Denies visual changes, abdominal pain, swelling, nausea or vomiting. In the ER, her blood work-up was remarkable for urine Pr/Cr of 5. BPs were in the 170's/100's. She was given benadryl and phenergan for the REILLY. She was started on Mag (4g loading dose followed by 2g/hr) for 24hrs. BPs were controlled with several doses of IV labetalol and Nifedipine. Her BPs was maintained wnl with Nifedipine 60mg XL. Her headaches greatly improved as well. Diagnosis: Stroke: No - Discharge Data Discharge Date: 10/07/20 Discharge Disposition: Home, Self-Care 01 Condition: Good - Referral to Home Health Primary Care Physician: Johann Hernandez MD - Discharge Diagnosis/Problem(s) (1) Hypertension SNOMED Code(s): 77403871 ICD Code: I10 - ESSENTIAL (PRIMARY) HYPERTENSION Status: Acute Current Visit: Yes (2) Preeclampsia SNOMED Code(s): 734607214 ICD Code: O14.90 - UNSPECIFIED PRE-ECLAMPSIA, UNSPECIFIED TRIMESTER Status: Acute Current Visit: Yes (3) Headache SNOMED Code(s): 41423063 ICD Code: R51 - HEADACHE * DO NOT USE * Status: Acute Current Visit: Yes Onset Date: 01/14/14 - Patient Instructions Diet: Regular Diet as Tolerated - Discharge Plan *PRESCRIPTION DRUG MONITORING PROGRAM REVIEWED*: Not Applicable *COPY OF PRESCRIPTION DRUG MONITORING REPORT IN PATIENT GHANSHYAM: Not Applicable Home Medications: Home Meds Non-Formulary Medication [NF Drug] 10/06/20 [History] Referrals: Johann Hernandez MD [Primary Care Provider] - - Discharge Summary/Plan Comment DC Time >30 min.: Yes Discharge Summary/Plan Comment: 30yo G4 now P3105 s/p ~10 days ago admitted with severe range HTN vs pre-eclampsia. Was put on Mag for 24hrs and blood pressure medicine. Currently BPs under controlled with Nifedipine 60mg XL. Headaches improved. Patient desires to be discharged home, she will monitor her BPs at home and return for severe range BPs, and follow-up appointment in 1 week. Provider and patient agreeable to the plan. - General Info Date of Service: 10/07/20 Admission Dx/Problem (Free Text: Patient Status Order with Admit Dx/Problem 10/06/20 06:24 Patient Status [ADT] Routine 10/06/20 07:28 Patient Status [ADT] Routine Admission Diagnosis/Problem Admission Diagnosis/Problem Preeclampsia in period - Review of Systems HEENT: Reports: No Symptoms Pulmonary: Reports: No Symptoms Cardiovascular: Reports: No Symptoms Gastrointestinal: Reports: No Symptoms Genitourinary: Reports: No Symptoms Musculoskeletal: Reports: No Symptoms Skin: Reports: No Symptoms Neurological: Reports: No Symptoms Psychiatric: Reports: No Symptoms - Patient Data Vitals - Most Recent: Last Vital Signs Temp 97.7 F 10/07/20 08:00 Pulse 85 10/07/20 08:00 Resp 16 10/07/20 08:00 BP 132/76 10/07/20 08:01 Pulse Ox 97 10/07/20 08:00 Weight - Most Recent: 36.015 kg I&O - Last 24 hours: Intake & Output 10/06/20 10/07/20 10/07/20 22:59 06:59 14:59 Intake Total 886 Output Total 1000 1650 Balance -114 -1650 Lab Results - Last 24 hrs: Laboratory Results - last 24 hr 10/06/20 10/06/20 10/07/20 Range/Units 13:00 19:06 01:00 Magnesium 5.8 H 6.7 H 7.2 H (1.8-2.4) mg/dL 10/07/20 Range/Units 07:18 Magnesium 7.4 H (1.8-2.4) mg/dL Med Orders - Current: Current Medications Calcium Gluconate (Calcium Gluconate 10% 1 Gm/10 Ml Sdv) 1 gm IVPUSH ASDIRECTED PRN PRN Reason: respiratory distress Magnesium Sulfate (Magnesium Sulfate In Water 20 Gm/500 Ml) 20 gm in 500 mls @ 50 mls/hr IV ASDIRECTED YEVGENIY Last Admin: 10/07/20 05:05 Dose: 2 gm/hr, 50 mls/hr Documented by: Sodium Chloride (Normal Saline) 1,000 mls @ 10 mls/hr IV ASDIRECTED YEVGENIY Last Admin: 10/06/20 08:22 Dose: 10 mls/hr Documented by: Labetalol HCl (Labetalol 100 Mg/20 Ml Mdv) 20 mg IVPUSH Q10M PRN; Protocol PRN Reason: Hypertension Last Admin: 10/06/20 09:40 Dose: 20 mg Documented by: Nifedipine (Nifedipine 30 Mg Tab.Er) 60 mg PO DAILY YEVGENIY Last Admin: 10/07/20 08:01 Dose: 60 mg Documented by: Sodium Chloride (Sodium Chloride 0.9% 10 Ml Syringe) 10 ml FLUSH ASDIRECTED PRN PRN Reason: Keep Vein Open Sodium Chloride (Sodium Chloride 0.9% 2.5 Ml Syringe) 2.5 ml FLUSH ASDIRECTED PRN PRN Reason: Keep Vein Open Sodium Chloride (Sodium Chloride 0.9% 10 Ml Sdv) 10 ml IV ASDIRECTED PRN PRN Reason: IV Use Discontinued Medications Acetaminophen (Acetaminophen 500 Mg Tab) 500 mg PO ONETIME ONE Stop: 10/06/20 07:52 Last Admin: 10/06/20 09:47 Dose: 500 mg Documented by: Acetaminophen (Acetaminophen 500 Mg Tab) 500 mg PO ONETIME ONE Stop: 10/06/20 11:18 Last Admin: 10/06/20 11:46 Dose: 500 mg Documented by: Acetaminophen (Acetaminophen 500 Mg Tab) 1,000 mg PO ONETIME ONE Stop: 10/06/20 22:19 Last Admin: 10/07/20 03:19 Dose: 1,000 mg Documented by: Acetaminophen (Acetaminophen 500 Mg Tab) Confirm Administered Dose 1,000 mg .ROUTE .STK-MED ONE Stop: 10/07/20 03:17 Diphenhydramine HCl (Diphenhydramine 50 Mg/Ml Sdv) 50 mg IVPUSH ONETIME ONE Stop: 10/06/20 05:01 Last Admin: 10/06/20 05:06 Dose: 50 mg Documented by: Sodium Chloride (Normal Saline) 1,000 mls @ 999 mls/hr IV .BOLUS YEVGENIY Sodium Chloride (Normal Saline) 1,000 mls @ 999 mls/hr IV NOW STA Stop: 10/06/20 06:05 Last Admin: 10/06/20 05:06 Dose: 999 mls/hr Documented by: Magnesium Sulfate 4 gm/ Premix 100 mls @ 300 mls/hr IV BOLUS ONE Stop: 10/06/20 07:47 Last Admin: 10/06/20 08:22 Dose: 300 mls/hr Documented by: Magnesium Sulfate 2 gm/ Premix 50 mls @ 300 mls/hr IV ONETIME ONE Stop: 10/06/20 07:37 Last Admin: 10/06/20 08:23 Dose: 300 mls/hr Documented by: Labetalol HCl (Labetalol 100 Mg/20 Ml Mdv) 10 mg IVPUSH ONETIME ONE; Protocol Stop: 10/06/20 05:40 Last Admin: 10/06/20 05:51 Dose: 10 mg Documented by: Labetalol HCl (Labetalol 100 Mg/20 Ml Mdv) 20 mg IVPUSH ONETIME ONE; Protocol Stop: 10/06/20 10:16 Last Admin: 10/06/20 10:20 Dose: 20 mg Documented by: Metoclopramide HCl (Metoclopramide 10 Mg/2 Ml Sdv) 10 mg IVPUSH ONETIME ONE Stop: 10/06/20 05:01 Last Admin: 10/06/20 05:07 Dose: 10 mg Documented by: Nifedipine (Nifedipine 10 Mg Cap) 10 mg PO ONETIME ONE Stop: 10/06/20 11:18 Last Admin: 10/06/20 11:46 Dose: 10 mg Documented by: - Exam General: Reports: Alert, Oriented Lungs: Reports: Normal Respiratory Effort Cardiovascular: Reports: Regular Rate GI/Abdominal Exam: Soft, Non-Tender Psy/Mental Status: Reports: Alert, Normal Affect, Normal Mood
[2020-10-07 11:05] VITALS: BP 121/68
== END 2020-10-07 11:15 | disposition home or self-care (01) | DRG 561 ==
LOC: MW.ED 03:52 → MW.OB 06:24 → OBSVTOIN 07:28
PROVIDERS: ADMIT Obstetrics & Gynecology Obstetrics; ATTEND Obstetrics & Gynecology Obstetrics
DX: O16.5 Unspecified maternal hypertension, complicating the puerperium (principal); Z20.822 Contact with and (suspected) exposure to COVID-19; O14.94 Unspecified pre-eclampsia, complicating childbirth
CPT/HCPCS: 36415; 70450; 70450-26; 80053; 81001; 82570; 83735; 84100; 84156; 85025; 85610; 96374; 96375; 99285-25; 99291; A9270-GY; J1200; J2765; J3475; J3490; J7030; U0002